=== PATIENT | male | born 1980 | race African-American/Black ===

== ENCOUNTER 2017-07-20 12:59 | Emergency (ER) | payer SELFPAY ==
[2017-07-20] MEDS ORDERED: KETOROLAC 30 MG/ML INJ ONE (13:47)
[2017-07-20 14:20] LABS: Absolute Lymphocytes (CBC) 1.4 K/uL (0.7-4.9); Absolute Monocytes 0.4 K/uL (0.1-1.3); Absolute Neutrophil 3.8 K/uL (1.8-8.0); Basophils % 0.9 % (0-1.3); Eosinophils % 1.2 % (0-4.4); Lymphocytes % 24.1 % (15.3-44.8); MCH 32.2 pg (27.0-35.0); MCV 95.5 fL (80-100); MPV 9.3 fL (7.6-11.3); Monocytes % 6.6 % (3.3-12.3); RBC Red Blood Cell Count 4.09 M/uL (4.33-5.43)
[2017-07-20 14:37] LABS: Potassium 4.2 mEq/L (3.6-5.0)
--- NOTE | 2017-07-20 15:33 | RAD REPORT ---
EXAM DESCRIPTION: CT - Abdomen Pelvis W Contrast - 07/20/2017 3:25 pm CLINICAL HISTORY: Abdominal pain, rectal pain COMPARISON: None. TECHNIQUE: Biphasic, helical CT imaging of the abdomen and pelvis was performed following 100 ml non -ionic IV contrast. Oral contrast was given. All CT scans are performed using dose optimization technique as appropriate and may include automated exposure control or mA/KV adjustment according to patient size. FINDINGS: No suspicious findings in the lung bases. The liver, spleen, and pancreas show no suspicious findings. Gallbladder and biliary tree are also wi thout suspicious finding. Symmetric renal function is seen with no hydronephrosis or suspicious renal mass. No pyelonephritis o r acute renal parenchymal process. Urinary bladder is contracted limiting detail. Prostate gland and seminal vesicles are not outside of normal range. No gastric dilatation or gastric wall thickening. No dilated large or small bowel loops. No rectal wa ll thickening or edema. No CT finding to explain the rectal pain symptoms. CT is very limited in rega rds to hemorrhoid diagnosis. No free air, free fluid or inflammatory stranding. No mass or bulky lymphadenopathy. Patient has a very small umbilical hernia containing only fat. No inguinal hernia. No adrenal abnormality. No suspicious bony findings. IMPRESSION: No rectal wall thickening or edema. No acute rectal or pelvic floor abnormality to expla in rectal pain symptoms. CT imaging is very limited in terms of hemorrhoid diagnosis. The
--- NOTE | 2017-07-20 16:51 | EDPHYS ---
Physician Documentation [facility] Name: Brett Santo Age: 37 yrs Sex: Male : 1980 Arrival Date: 07/20/2017 Time: 13:02 Bed 13 Private MD: ED Physician Kishore Pandey HPI: 07/20 19:06 This 37 yrs old Black Male presents to ER via Ambulatory with complaints of Abdominal kdr Pain, Diarrhea. 19:07 The patient presents to the emergency department with pain in the rectal area, that is kdr moderate. Onset: The symptoms/episode began/occurred gradually, 2 day(s) ago. Context: the patient has no known special context relating to the rectal area complaint(s). Modifying factors: The symptoms are alleviated by nothing, The symptoms are aggravated by bowel movement, movement. Associate signs and symptoms: Pertinent positives: diarrhea, vomiting, stomach contents, Pertinent negatives: constipation, dysuria, fever, lower GI bleeding. The patient has not experienced similar symptoms in the past. The patient has not recently seen a physician. Hurts worse when standing. Historical: - Allergies: 13:10 EGG/POULTRY; ch 13:10 PENICILLINS; ch - Home Meds: 13:10 None [Active]; ch - PMHx: 13:10 Asthma; ch - PSHx: 13:10 R arm; ch - Immunization history:: Adult Immunizations up to date, Flu vaccine is up to date. - Social history:: Smoking status: Patient uses tobacco products, denies chronic smoking, but will smoke occasionally, Patient uses alcohol, weekly. Patient/guardian denies using. ROS: 19:07 Constitutional: Negative for fever, chills, and weight loss, Eyes: Negative for injury, kdr pain, redness, and discharge, ENT: Negative for injury, pain, and discharge, Neck: Negative for injury, pain, and swelling, Cardiovascular: Negative for chest pain, palpitations, and edema, Respiratory: Negative for shortness of breath, cough, wheezing, and pleuritic chest pain, Back: Negative for injury and pain, : Negative for injury, bleeding, discharge, and swelling, MS/Extremity: Negative for injury and deformity, Skin: Negative for injury, rash, and discoloration, Neuro: Negative for headache, weakness, numbness, tingling, and seizure activity. Psych: Negative for depression, anxiety, suicide ideation, homicidal ideation, and hallucinations, Allergy/Immunology: Negative for hives, rash, and allergies, Endocrine: Negative for neck swelling, polydipsia, polyuria, polyphagia, and marked weight changes, Hematologic/Lymphatic: Negative for swollen nodes, abnormal bleeding, and unusual bruising. 19:07 Abdomen/GI: Positive for nausea, vomiting, diarrhea, rectal pain, Negative for abdominal pain, constipation, abdominal distension, anorexia, dysphagia, hematemesis, rectal bleeding, bowel incontinence. Exam: 19:07 Constitutional: This is a well developed, well nourished patient who is awake, alert, kdr and in no acute distress. Head/Face: Normocephalic, atraumatic. Eyes: Pupils equal round and reactive to light, extra-ocular motions intact. Lids and lashes normal. Conjunctiva and sclera are non-icteric and not injected. Cornea within normal limits. Periorbital areas with no swelling, redness, or edema. Neck: Trachea midline, no thyromegaly or masses palpated, and no cervical lymphadenopathy. Supple, full range of motion without nuchal rigidity, or vertebral point tenderness. No Meningismus. 19:07 Abdomen/GI: Inspection: Rectal exam: hemorrhoid(s), are not appreciated, external, mass, is not appreciated, swelling, is not appreciated, tenderness, that is mild. Vital Signs: 13:10 BP 138 / 86; Pulse 83; Resp 18; Temp 98.3; Pulse Ox 99% on R/A; Weight 81.65 kg; Height ch 6 ft. (182.88 cm); Pain 8/10; 14:31 BP 131 / 87; Pulse 80; Resp 16; Pulse Ox 100% ; hb 14:42 BP 131 / 87; Pulse 52; Resp 16; Pulse Ox 100% on R/A; hb 15:45 BP 162 / 81; Pulse 58; Resp 15; Pulse Ox 98% on R/A; Pain 3/10; hb 13:10 Body Mass Index 24.41 (81.65 kg, 182.88 cm) ch MDM: 16:50 Patient medically screened. kdr 19:07 Data reviewed: vital signs, nurses notes, lab test result(s), radiologic studies. kdr Counseling: I had a detailed discussion with the patient and/or guardian regarding: the historical points, exam findings, and any diagnostic results supporting the discharge/admit diagnosis, lab results, radiology results, the need for outpatient follow up. 07/20 13:43 Order name: CBC with Diff; Complete Time: 16:48 kdr 07/20 13:43 Order name: Chem 7; Complete Time: 16:48 kdr 07/20 13:43 Order name: CT Abd/Pelvis - W/Contrast; Complete Time: 16:48 kdr Administered Medications: 13:50 Drug: TORadol 30 mg Route: IVP; Site: right antecubital; hb 14:30 Follow up: Response: No adverse reaction; Pain is decreased hb Disposition: 07/20/17 16:50 Discharged to Home. Impression: Rectal pain. - Condition is Stable. - Prescriptions for Tramadol 50 mg Oral Tablet - take 1 tablet by ORAL route every 8 hours as needed; 12 tablet. Anusol- HC 25 mg Rectal Suppository - insert 1 suppository by RECTAL route every 12 hours As needed; 20 suppository. - Medication Reconciliation Form, Thank You Letter, Antibiotic Education, Prescription Opioid Use form. - Work release form (07/21/17 10:49). bd - Follow up: Private Physician; When: 2 - 3 days; Reason: If symptoms return, Further diagnostic work-up, Recheck today's complaints, Continuance of care, Re-evaluation by your physician. - Problem is new. - Symptoms have improved. Signatures: Dispatcher [employer] EDMS Dianne Hernandez RN RN Kishore Pandey MD MD [facility] Danay Jacinto RN RN aa5 Lorri Le RN RN Julia Joshi Corrections: (The following items were deleted from the chart) 17:25 16:50 07/20/2017 16:50 Discharged to Home. Impression: Rectal pain. Condition is aa5 Stable. Forms are Medication Reconciliation Form, Thank You Letter, Antibiotic Education, Prescription Opioid Use. Follow up: Private Physician; When: 2 - 3 days; Reason: If symptoms return, Further diagnostic work-up, Recheck today's complaints, Continuance of care, Re-evaluation by your physician. Problem is new. Symptoms have improved. kdr
--- NOTE | 2017-07-20 16:51 | ER ---
Nurse's Notes [facility] Name: Brett Santo Age: 37 yrs Sex: Male : 1980 Arrival Date: 07/20/2017 Time: 13:02 Bed 13 Private MD: Diagnosis: Rectal pain Presentation: 07/20 13:09 Presenting complaint: Patient states: My rectum hurts a lot, I don't know if I have a ch Hemorrhoid or what. Diarrhea for 2 days. Transition of care: patient was not received from another setting of care. Onset of symptoms was July 18, 2017. Initial Sepsis Screen: Does the patient meet any 2 criteria? No. Patient's initial sepsis screen is negative. Does the patient have a suspected source of infection? No. Patient's initial sepsis screen is negative. Care prior to arrival: None. 13:09 Method Of Arrival: Ambulatory 13:09 Acuity: SERGIO 4 ch Triage Assessment: 13:10 General: Appears in no apparent distress. comfortable, Behavior is calm, cooperative, ch appropriate for age. Pain: Complains of pain in anus Pain currently is 8 out of 10 on a pain scale. GI: Reports diarrhea, rectal pain. Historical: - Allergies: 13:10 EGG/POULTRY; 13:10 PENICILLINS; - Home Meds: 13:10 None [Active]; - PMHx: 13:10 Asthma; - PSHx: 13:10 R arm; - Immunization history:: Adult Immunizations up to date, Flu vaccine is up to date. - Social history:: Smoking status: Patient uses tobacco products, denies chronic smoking, but will smoke occasionally, Patient uses alcohol, weekly. Patient/guardian denies using. Screenin:45 Abuse screen: Denies threats or abuse. Denies injuries from another. hb 13:45 Nutritional screening: No deficits noted. Tuberculosis screening: No symptoms or risk hb factors identified. Fall Risk None identified. Assessment: 13:50 General: Appears in no apparent distress. Behavior is calm, cooperative. Pain: Pain hb currently is 5 out of 10 on a pain scale. Neuro: Level of Consciousness is awake, alert, obeys commands, Oriented to person, place, time, situation. Cardiovascular: Heart tones S1 S2 present Capillary refill < 3 seconds Patient's skin is warm and dry. Respiratory: Airway is patent Trachea midline Respiratory effort is even, unlabored, Respiratory pattern is regular, symmetrical, Breath sounds are clear bilaterally. GI: Abdomen is non-distended, Bowel sounds present X 4 quads. Abd is soft and non tender X 4 quads. Reports hemorrhoids. : No signs and/or symptoms were reported regarding the genitourinary system. EENT: No signs and/or symptoms were reported regarding the EENT system. Derm: No signs and/or symptoms reported regarding the dermatologic system. Skin is intact, is healthy with good turgor, Skin is pink, warm \T\ dry. Musculoskeletal: No signs and/or symptoms reported regarding the musculoskeletal system. 14:43 Reassessment: Patient appears in no apparent distress at this time. Patient and/or hb family updated on plan of care and expected duration. Pain level reassessed. Patient is alert, oriented x 3, equal unlabored respirations, skin warm/dry/pink. 15:40 Reassessment: Patient appears in no apparent distress at this time. Patient and/or hb family updated on plan of care and expected duration. Pain level reassessed. Patient is alert, oriented x 3, equal unlabored respirations, skin warm/dry/pink. Patient states symptoms have improved. Vital Signs: 13:10 BP 138 / 86; Pulse 83; Resp 18; Temp 98.3; Pulse Ox 99% on R/A; Weight 81.65 kg; Height ch 6 ft. (182.88 cm); Pain 8/10; 14:31 BP 131 / 87; Pulse 80; Resp 16; Pulse Ox 100% ; hb 14:42 BP 131 / 87; Pulse 52; Resp 16; Pulse Ox 100% on R/A; hb 15:45 BP 162 / 81; Pulse 58; Resp 15; Pulse Ox 98% on R/A; Pain 3/10; hb 13:10 Body Mass Index 24.41 (81.65 kg, 182.88 cm) ED Course: 13:02 Patient arrived in ED. sb2 13:05 Kishore Pandey MD is Attending Physician. kdr 13:10 Triage completed. ch 13:10 Arm band placed on left wrist. Patient placed in an exam room, on a stretcher. ch 13:32 Lorri Le RN is Primary Nurse. hb 13:45 Patient has correct armband on for positive identification. Placed in gown. Bed in low hb position. Call light in reach. Side rails up X 1. 13:50 Inserted saline lock: 20 gauge in right antecubital area, using aseptic technique. hb Blood collected. 15:25 CT Abd/Pelvis - W/Contrast In Process Unspecified. EDMS Administered Medications: 13:50 Drug: TORadol 30 mg Route: IVP; Site: right antecubital; hb 14:30 Follow up: Response: No adverse reaction; Pain is decreased hb Outcome: 16:50 Discharge ordered by . pablo 17:25 Patient left the ED. aa5 Signatures: Dispatcher [employer] EDMS Dianne Hernandez, RN RN Kishore Pandey MD MD kdr Calderon, Audri, RN RN aa5 Lorri Le RN RN Anum Clancy sb2
== END 2017-07-20 17:25 | disposition home or self-care (01) ==
LOC: ER 12:59
DX: K62.89 Other specified diseases of anus and rectum (principal); Z72.0 Tobacco use; Z88.0 Allergy status to penicillin; Z91.012 Allergy to eggs; Z91.018 Allergy to other foods
CPT/HCPCS: 36415; 74177; 80048; 85025; 96374; 99284; Q9967

== ENCOUNTER 2018-01-19 04:47 | Emergency (ER) | payer SELFPAY ==
[2018-01-19] MEDS ORDERED: ALBUTEROL 2.5 MG/3 ML NEB SOL ONE (05:47)
[2018-01-19] MEDS ORDERED: DIPHENHYDRAMINE 25 MG TAB/CAP ONE (05:47)
[2018-01-19] MEDS ORDERED: IPRATROPIUM BROM 0.5MG/2.5ML ONE (05:47)
[2018-01-19] MEDS ORDERED: IBUPROFEN 200 MG TAB PO ONE (05:48)
[2018-01-19] MEDS ORDERED: IBUPROFEN 400 MG TAB ONE (05:48)
[2018-01-19] MEDS ORDERED: ACETAMINOPHEN 500 MG TAB ONE (06:04)
--- NOTE | 2018-01-19 07:31 | ER ---
Nurse's Notes [facility] Name: Brett Santo Age: 37 yrs Sex: Male : 1980 Arrival Date: 01/19/2018 Time: 04:56 Bed 14 Private MD: Diagnosis: Acute Viral syndrome Presentation: 01/19 05:06 Presenting complaint: Patient states: Pt reports congestion, chills, body aches, cough, ea sore throat since Tuesday, reports was diagnosed with flu last week. Transition of care: patient was not received from another setting of care. Onset of symptoms was January 19, 2018. Risk Assessment: Do you want to hurt yourself or someone else? Patient reports no desire to harm self or others. Initial Sepsis Screen: Does the patient meet any 2 criteria? No. Patient's initial sepsis screen is negative. Does the patient have a suspected source of infection? Yes: Productive cough/pneumonia. Care prior to arrival: None. 05:06 Method Of Arrival: Ambulatory ea 05:06 Acuity: SERGIO 4 ea Triage Assessment: 05:09 General: Appears uncomfortable, Behavior is calm, cooperative, appropriate for age. ea Pain: Complains of pain in body aches Pain currently is 8 out of 10 on a pain scale. EENT: Parent/caregiver reports the patient having nasal congestion. Neuro: Level of Consciousness is awake, alert, obeys commands, Oriented to person, place, time, situation. Cardiovascular: Patient's skin is warm and dry. Respiratory: Airway is patent Respiratory effort is even, unlabored, Respiratory pattern is regular, symmetrical, Parent/caregiver reports the patient having cough that is productive. GI: No signs and/or symptoms were reported involving the gastrointestinal system. : No signs and/or symptoms were reported regarding the genitourinary system. Derm: Skin is pink, warm \T\ dry. Musculoskeletal: Circulation, motion, and sensation intact. Historical: - Allergies: 05:08 PENICILLINS; ea 05:08 EGG/POULTRY; ea - Home Meds: 05:08 None [Active]; ea - PMHx: 05:08 Asthma; ea - PSHx: 05:08 R arm; ea - Immunization history:: Adult Immunizations up to date. - Social history:: Smoking status: Patient uses tobacco products, smokes one pack cigarettes per day. - Ebola Screening: : No symptoms or risks identified at this time. - Family history:: not pertinent. - Hospitalizations: : No recent hospitalization is reported. Screenin:12 Abuse screen: Denies threats or abuse. Nutritional screening: No deficits noted. ea Tuberculosis screening: No symptoms or risk factors identified. Fall Risk None identified. Assessment: 05:09 Reassessment: see triage assessment. ea 06:14 Reassessment: Patient and/or family updated on plan of care and expected duration. Pain ea level reassessed. Patient is alert, oriented x 3, equal unlabored respirations, skin warm/dry/pink. Awaiting on flu swab results. 07:09 General: Appears in no apparent distress. uncomfortable, Behavior is calm, cooperative, hj appropriate for age. Pain: Complains of pain in body. Neuro: Level of Consciousness is awake, alert, obeys commands, Oriented to person, place, time, situation, Appropriate for age. Cardiovascular: Capillary refill < 3 seconds Patient's skin is warm and dry. Respiratory: Airway is patent Respiratory effort is even, unlabored, Respiratory pattern is regular, symmetrical. GI: No signs and/or symptoms were reported involving the gastrointestinal system. : No signs and/or symptoms were reported regarding the genitourinary system. EENT: No signs and/or symptoms were reported regarding the EENT system. Derm: No signs and/or symptoms reported regarding the dermatologic system. Musculoskeletal: No signs and/or symptoms reported regarding the musculoskeletal system. Vital Signs: 05:11 BP 157 / 113; Pulse 66; Resp 18; Temp 98.6(TE); Pulse Ox 100% on R/A; Weight 79.38 kg; ea Height 6 ft. 1 in. (185.42 cm); Pain 8/10; 06:15 BP 139 / 91; Pulse 55; Resp 18; Pulse Ox 98% ; ea 07:10 BP 138 / 89; Pulse 62; Resp 18; Pulse Ox 100% on R/A; hj 05:11 Body Mass Index 23.09 (79.38 kg, 185.42 cm) ea ED Course: 04:56 Patient arrived in ED. es 05:02 Arm band placed on right wrist. Patient placed in an exam room, on a stretcher, on ea pulse oximetry. 05:06 Tanya Marie RN is Primary Nurse. ea 05:06 Feng Sanchez MD is Attending Physician. wa 05:08 Triage completed. ea 05:12 Patient has correct armband on for positive identification. Bed in low position. Call ea light in reach. Side rails up X2. 07:05 Report given to Parmjit SKINNER. ea 07:39 No provider procedures requiring assistance completed. Patient did not have IV access hj during this emergency room visit. Administered Medications: 05:51 Drug: Benadryl 25 mg Route: PO; lp1 06:17 Follow up: Response: No adverse reaction ea 05:51 Drug: Motrin 600 mg Route: PO; lp1 06:17 Follow up: Response: No adverse reaction ea 05:51 Drug: Albuterol 2.5 mg Route: Inhalation; lp1 06:17 Follow up: Response: No adverse reaction ea 05:51 Drug: AtroVENT Aerosol 0.5 mg Route: Inhalation; lp1 06:17 Follow up: Response: No adverse reaction ea 06:00 Drug: Tylenol 1000 mg Route: PO; ea 06:17 Follow up: Response: No adverse reaction ea Outcome: 07:30 Discharge ordered by . wa 07:41 Discharged to home ambulatory, with family. hj 07:41 Condition: stable 07:41 Discharge instructions given to patient, family, Instructed on discharge instructions, follow up and referral plans. medication usage, Demonstrated understanding of instructions, follow-up care, medications, Prescriptions given X 1. 07:41 Patient left the ED. hj Signatures: Leeanne Mullen Laura, RN RN lp1 Parmjit Ovalles RN RN Tanya Marie RN RN ea Appiah, William, MD MD oh
--- NOTE | 2018-01-19 07:31 | EDPHYS ---
Physician Documentation [facility] Name: Brett Santo Age: 37 yrs Sex: Male : 1980 Arrival Date: 01/19/2018 Time: 04:56 Bed 14 Private MD: ED Physician Feng Sanchez HPI: 01/19 05:39 This 37 yrs old Black Male presents to ER via Ambulatory with complaints of Flu wa Symptoms. 05:39 The patient or guardian reports cough, that is intermittent, described as moderate, wa difficulty breathing, flu symptoms, low-grade fever, myalgias, sore throat. body aches. Onset: The symptoms/episode began/occurred 4 day(s) ago. Severity of symptoms: At their worst the symptoms were moderate, in the emergency department the symptoms are actually worse. Modifying factors: The symptoms are alleviated by nothing, the symptoms are aggravated by nothing. Associated signs and symptoms: Pertinent positives: fever, rhinorrhea, sore throat, Pertinent negatives: chest pain, diarrhea, vomiting. The patient has not experienced similar symptoms in the past. The patient has not recently seen a physician. spouse dx'd with flu. Historical: - Allergies: 05:08 PENICILLINS; ea 05:08 EGG/POULTRY; ea - Home Meds: 05:08 None [Active]; ea - PMHx: 05:08 Asthma; ea - PSHx: 05:08 R arm; ea - Immunization history:: Adult Immunizations up to date. - Social history:: Smoking status: Patient uses tobacco products, smokes one pack cigarettes per day. - Ebola Screening: : No symptoms or risks identified at this time. - Family history:: not pertinent. - Hospitalizations: : No recent hospitalization is reported. ROS: 05:41 Eyes: Negative for injury, pain, redness, and discharge, Neck: Negative for injury, wa pain, and swelling, Cardiovascular: Negative for chest pain, palpitations, and edema, Abdomen/GI: Negative for abdominal pain, nausea, vomiting, diarrhea, and constipation, Back: Negative for injury and pain, : Negative for injury, bleeding, discharge, and swelling, MS/Extremity: Negative for injury and deformity, Skin: Negative for injury, rash, and discoloration, Neuro: Negative for headache, weakness, numbness, tingling, and seizure, Psych: Negative for depression, anxiety, suicide ideation, homicidal ideation, and hallucinations. 05:41 Constitutional: Positive for body aches, chills, fatigue, malaise, Negative for weight loss. 05:41 ENT: Positive for sinus congestion, sore throat, Negative for ear pain. 05:41 Respiratory: Positive for cough, with no reported sputum, shortness of breath, at rest. wheezing, expiratory, Negative for hemoptysis. Exam: 05:42 Constitutional: This is a well developed, well nourished patient who is awake, alert, wa and in no acute distress. Head/Face: Normocephalic, atraumatic. Eyes: Pupils equal round and reactive to light, extra-ocular motions intact. Lids and lashes normal. Conjunctiva and sclera are non-icteric and not injected. Cornea within normal limits. Periorbital areas with no swelling, redness, or edema. Neck: Trachea midline, no thyromegaly or masses palpated, and no cervical lymphadenopathy. Supple, full range of motion without nuchal rigidity, or vertebral point tenderness. No Meningismus. Cardiovascular: Regular rate and rhythm with a normal S1 and S2. No gallops, murmurs, or rubs. Normal PMI, no JVD. No pulse deficits. Respiratory: Lungs have equal breath sounds bilaterally, clear to auscultation and percussion. No rales, rhonchi or wheezes noted. No increased work of breathing, no retractions or nasal flaring. Abdomen/GI: Soft, non-tender, with normal bowel sounds. No distension or tympany. No guarding or rebound. No evidence of tenderness throughout. Back: No spinal tenderness. No costovertebral tenderness. Full range of motion. Skin: Warm, dry with normal turgor. Normal color with no rashes, no lesions, and no evidence of cellulitis. MS/ Extremity: Pulses equal, no cyanosis. Neurovascular intact. Full, normal range of motion. Neuro: Awake and alert, GCS 15, oriented to person, place, time, and situation. Cranial nerves II-XII grossly intact. Motor strength 5/5 in all extremities. Sensory grossly intact. Cerebellar exam normal. Normal gait. Psych: Awake, alert, with orientation to person, place and time. Behavior, mood, and affect are within normal limits. 05:42 Respiratory: the patient does not display signs of respiratory distress, Respirations: normal, Breath sounds: wheezing: that is mild, is scattered, is heard diffusely. Vital Signs: 05:11 BP 157 / 113; Pulse 66; Resp 18; Temp 98.6(TE); Pulse Ox 100% on R/A; Weight 79.38 kg; ea Height 6 ft. 1 in. (185.42 cm); Pain 8/10; 06:15 BP 139 / 91; Pulse 55; Resp 18; Pulse Ox 98% ; ea 07:10 BP 138 / 89; Pulse 62; Resp 18; Pulse Ox 100% on R/A; hj 05:11 Body Mass Index 23.09 (79.38 kg, 185.42 cm) ea MDM: 05:06 Patient medically screened. de 05:42 Differential Diagnosis: Bronchitis Influenza Upper Respiratory Infection Asthma de Exacerbation Viral Syndrome. 07:27 Data reviewed: vital signs, nurses notes. Test interpretation: by ED physician or wa midlevel provider: Flu negative. Response to treatment: the patient's symptoms have markedly improved after treatment. 01/19 05:30 Order name: Flu; Complete Time: 07:27 de Administered Medications: 05:51 Drug: Benadryl 25 mg Route: PO; lp1 06:17 Follow up: Response: No adverse reaction ea 05:51 Drug: Motrin 600 mg Route: PO; lp1 06:17 Follow up: Response: No adverse reaction ea 05:51 Drug: Albuterol 2.5 mg Route: Inhalation; lp1 06:17 Follow up: Response: No adverse reaction ea 05:51 Drug: AtroVENT Aerosol 0.5 mg Route: Inhalation; lp1 06:17 Follow up: Response: No adverse reaction ea 06:00 Drug: Tylenol 1000 mg Route: PO; ea 06:17 Follow up: Response: No adverse reaction ea Disposition: 01/19/18 07:30 Discharged to Home. Impression: Acute Viral syndrome. - Condition is Stable. - Discharge Instructions: Viral Respiratory Infection, [id number]. - Prescriptions for Albuterol Sulfate 90 mcg/actuation - inhale 1-2 puff by INHALATION route every 4-6 hours; 1 Inhaler. - Work release form, Medication Reconciliation Form, Thank You Letter, Antibiotic Education, Prescription Opioid Use form. - Follow up: Private Physician; When: 1 - 2 days. - Problem is new. - Symptoms have improved. Signatures: Dispatcher [employer] EDMS Letty Lin RN RN lp1 Parmjit Ovalles RN SUSANNE hj Tanya Marie RN Feng Montgomery ea, MD MD wa Corrections: (The following items were deleted from the chart) 07:41 07:30 01/19/2018 07:30 Discharged to Home. Impression: Acute Viral syndrome. Condition hj is Stable. Forms are Medication Reconciliation Form, Thank You Letter, Antibiotic Education, Prescription Opioid Use. Follow up: Private Physician; When: 1 - 2 days. Problem is new. Symptoms have improved. wa
== END 2018-01-19 07:41 | disposition home or self-care (01) ==
LOC: ER 04:47
DX: B34.9 Viral infection, unspecified (principal); F17.210 Nicotine dependence, cigarettes, uncomplicated; Z88.0 Allergy status to penicillin; Z91.012 Allergy to eggs; Z91.018 Allergy to other foods
CPT/HCPCS: 87804; 99284

== ENCOUNTER 2018-02-23 00:41 | Emergency (ER) | payer SELFPAY ==
[2018-02-23 02:06] LABS: Absolute Lymphocytes (CBC) 1.4 K/uL (0.7-4.9); Absolute Monocytes 0.5 K/uL (0.1-1.3); Absolute Neutrophil 7.2 K/uL (1.8-8.0); Basophils % 0.4 % (0-1.3); Eosinophils % 1.5 % (0-4.4); Hematocrit 39.8 % (39.6-49.0); Lymphocytes % 14.5 % (15.3-44.8); MCV 94.8 fL (80-100); Monocytes % 5.7 % (3.3-12.3); RBC Red Blood Cell Count 4.19 M/uL (4.33-5.43)
[2018-02-23 02:25] LABS: BUN Blood Urea Nitrogen 17 mg/dL (7-18); Bicarbonate 27 mmol/L (21-32); Glucose Level 82 mg/dL (74-106); Potassium 3.7 mmol/L (3.5-5.1); Sodium Level 142 mmol/L (136-145); Troponin I < 0.02 ng/mL (0.0-0.045)
--- NOTE | 2018-02-23 02:46 | ER ---
Nurse's Notes [facility] Name: Brett Santo Jr Age: 37 yrs Sex: Male : 1980 Arrival Date: 02/23/2018 Time: 00:42 Bed 8 Private MD: Diagnosis: Acute upper respiratory infection, unspecified Presentation: 02/23 00:56 Presenting complaint: Patient states: "I went to bed with bad sinus pressure. I woke up jd3 with bad chest pressure and coughing. it hurts to cough and hurts to swallow.". Transition of care: patient was not received from another setting of care. Onset of symptoms was February 22, 2018. Risk Assessment: Do you want to hurt yourself or someone else? Patient reports no desire to harm self or others. Initial Sepsis Screen: Does the patient meet any 2 criteria? No. Patient's initial sepsis screen is negative. Does the patient have a suspected source of infection? No. Patient's initial sepsis screen is negative. Care prior to arrival: None. 00:56 Method Of Arrival: Ambulatory jd3 00:56 Acuity: SERGIO 3 jd3 Historical: - Allergies: 01:00 PENICILLINS; jd3 01:00 EGG/POULTRY; jd3 - Home Meds: 01:00 None [Active]; jd3 - PMHx: 01:00 Asthma; jd3 - PSHx: 01:00 R arm; jd3 - Immunization history:: Adult Immunizations up to date, Flu vaccine is not up to date. - Social history:: Smoking status: Patient uses tobacco products, smokes one-half pack cigarettes per day. - Ebola Screening: : Patient negative for fever greater than or equal to 101.5 degrees Fahrenheit, and additional compatible Ebola Virus Disease symptoms. Screenin:04 Abuse screen: Denies threats or abuse. Nutritional screening: No deficits noted. jd3 Tuberculosis screening: No symptoms or risk factors identified. Fall Risk Ambulatory Aid- None/Bed Rest/Nurse Assist (0 pts). Gait- Normal/Bed Rest/Wheelchair (0 pts) Mental Status- Oriented to own ability (0 pts). Total Song Fall Scale indicates No Risk (0-24 pts). Assessment: 01:01 General: Appears in no apparent distress. uncomfortable, Behavior is calm, cooperative, jd3 appropriate for age. Pain: Complains of pain in chest Quality of pain is described as pressure. Neuro: Level of Consciousness is awake, alert, obeys commands, Oriented to person, place, time, situation. Cardiovascular: Heart tones S1 S2 present Capillary refill < 3 seconds Patient's skin is warm and dry. Respiratory: Reports cough that is Airway is patent Respiratory effort is even, unlabored, Respiratory pattern is regular, symmetrical, Breath sounds are clear bilaterally. GI: Abdomen is round non-distended. : No signs and/or symptoms were reported regarding the genitourinary system. EENT: No signs and/or symptoms were reported regarding the EENT system. Derm: Skin is intact. Musculoskeletal: Circulation, motion, and sensation intact. Range of motion: intact in all extremities. 02:23 Reassessment: Patient appears in no apparent distress at this time. Patient and/or jd3 family updated on plan of care and expected duration. Pain level reassessed. Patient is alert, oriented x 3, equal unlabored respirations, skin warm/dry/pink. 03:01 Reassessment: Patient appears in no apparent distress at this time. Patient and/or jd3 family updated on plan of care and expected duration. Pain level reassessed. Patient is alert, oriented x 3, equal unlabored respirations, skin warm/dry/pink. Vital Signs: 01:00 BP 137 / 100; Pulse 69; Resp 19 S; Temp 97.7(O); Pulse Ox 100% on R/A; Weight 79.38 kg jd3 (R); Height 6 ft. 1 in. (185.42 cm) (R); Pain 8/10; 02:23 BP 140 / 78; Pulse 57; Resp 18 S; Pulse Ox 100% on R/A; jd3 01:00 Body Mass Index 23.09 (79.38 kg, 185.42 cm) d3 ED Course: 00:42 Patient arrived in ED. am2 00:56 Michael Schwarz RN is Primary Nurse. jd3 00:58 Quinten Islas NP is PHCP. pm1 00:58 Lance Alfonso MD is Attending Physician. pm1 00:59 Triage completed. jd3 01:01 Arm band placed on. jd3 01:04 Patient has correct armband on for positive identification. Bed in low position. Call j light in reach. Side rails up X 1. Adult w/ patient. 01:21 Patient moved to radiology via wheelchair. kw 01:21 X-ray completed. Patient tolerated procedure well. kw 01:21 Patient moved back from radiology. kw 01:23 Chest Pa And Lat (2 Views) In Process Unspecified. EDMS 01:29 Warm blanket given. jd3 01:52 Inserted saline lock: 20 gauge in right antecubital area, using aseptic technique. ds4 Blood collected. 01:52 EKG done, by ED staff, reviewed by Lance Alfonso MD. ds4 03:00 No provider procedures requiring assistance completed. IV discontinued, intact, jd3 bleeding controlled, No redness/swelling at site. Pressure dressing applied. Administered Medications: 02:59 Drug: Tussionex Pennkinetic ER 5 ml Route: PO; jd3 02:59 Follow up: Response: Medication administered at discharge. jd3 Outcome: 02:45 Discharge ordered by MD. pm1 03:00 Discharged to home ambulatory, with family. jd3 03:00 Condition: stable 03:00 Discharge instructions given to patient, family, Instructed on discharge instructions, follow up and referral plans. medication usage, Demonstrated understanding of instructions, follow-up care, medications, Prescriptions given X 1. 03:01 Patient left the ED. jd3 Signatures: Dispatcher [employer] EDMS Julieta Hoyos Donovan ds4 Quinten Islas NP [employer] WORK[employer] pm1 Adri Mills am2 Michael Schwarz RN RN jd3
--- NOTE | 2018-02-23 02:46 | EDPHYS ---
Physician Documentation [facility] Name: Brett Santo Jr Age: 37 yrs Sex: Male : 1980 Arrival Date: 02/23/2018 Time: 00:42 Bed 8 Private MD: ED Physician Lance Alfonso HPI: 02/23 01:30 This 37 yrs old Black Male presents to ER via Ambulatory with complaints of Chest Pain. pm1 01:30 The patient or guardian reports cough, with productive sputum, that is yellow. pm1 01:30 Onset: The symptoms/episode began/occurred 1 week(s) ago. Severity of symptoms: in the pm1 emergency department the symptoms are actually worse. Modifying factors: The symptoms are alleviated by nothing, the symptoms are aggravated by nothing. Associated signs and symptoms: Pertinent positives: chest pain, with cough, with breathing, sore throat, Pertinent negatives: diarrhea, fever, vomiting. The patient has not experienced similar symptoms in the past. The patient has not recently seen a physician. Historical: - Allergies: 01:00 PENICILLINS; jd3 01:00 EGG/POULTRY; jd3 - Home Meds: 01:00 None [Active]; jd3 - PMHx: 01:00 Asthma; jd3 - PSHx: 01:00 R arm; jd3 - Immunization history:: Adult Immunizations up to date, Flu vaccine is not up to date. - Social history:: Smoking status: Patient uses tobacco products, smokes one-half pack cigarettes per day. - Ebola Screening: : Patient negative for fever greater than or equal to 101.5 degrees Fahrenheit, and additional compatible Ebola Virus Disease symptoms. ROS: 01:30 Constitutional: Negative for fever, chills, and weight loss, Eyes: Negative for injury, pm1 pain, redness, and discharge, Neck: Negative for injury, pain, and swelling. 01:30 Abdomen/GI: Negative for abdominal pain, nausea, vomiting, diarrhea, and constipation, Back: Negative for injury and pain, : Negative for injury, bleeding, discharge, and swelling, MS/Extremity: Negative for injury and deformity, Skin: Negative for injury, rash, and discoloration. 01:30 Neuro: Negative for headache, weakness, numbness, tingling, and seizure. 01:30 ENT: Positive for sinus congestion, sinus pain, sore throat. 01:30 Cardiovascular: Positive for chest pain, Negative for orthopnea, palpitations. 01:30 Respiratory: Positive for cough, Negative for shortness of breath, wheezing. Exam: 01:30 Constitutional: This is a well developed, well nourished patient who is awake, alert, pm1 and in no acute distress. Head/Face: Normocephalic, atraumatic. Eyes: Pupils equal round and reactive to light, extra-ocular motions intact. Lids and lashes normal. Conjunctiva and sclera are non-icteric and not injected. Cornea within normal limits. Periorbital areas with no swelling, redness, or edema. ENT: Nares patent. No nasal discharge, no septal abnormalities noted. Tympanic membranes are normal and external auditory canals are clear. Oropharynx with no redness, swelling, or masses, exudates, or evidence of obstruction, uvula midline. Mucous membranes moist. Neck: Trachea midline, no thyromegaly or masses palpated, and no cervical lymphadenopathy. Supple, full range of motion without nuchal rigidity, or vertebral point tenderness. No Meningismus. Chest/axilla: Normal chest wall appearance and motion. Nontender with no deformity. No lesions are appreciated. Cardiovascular: Regular rate and rhythm with a normal S1 and S2. No gallops, murmurs, or rubs. Normal PMI, no JVD. No pulse deficits. Respiratory: Lungs have equal breath sounds bilaterally, clear to auscultation and percussion. No rales, rhonchi or wheezes noted. No increased work of breathing, no retractions or nasal flaring. Abdomen/GI: Soft, non-tender, with normal bowel sounds. No distension or tympany. No guarding or rebound. No evidence of tenderness throughout. Back: No spinal tenderness. No costovertebral tenderness. Full range of motion. Skin: Warm, dry with normal turgor. Normal color with no rashes, no lesions, and no evidence of cellulitis. MS/ Extremity: Pulses equal, no cyanosis. Neurovascular intact. Full, normal range of motion. 01:30 Neuro: Orientation: is normal, Motor: is normal, Sensation: is normal, no obvious gross deficits. Vital Signs: 01:00 BP 137 / 100; Pulse 69; Resp 19 S; Temp 97.7(O); Pulse Ox 100% on R/A; Weight 79.38 kg jd3 (R); Height 6 ft. 1 in. (185.42 cm) (R); Pain 8/10; 02:23 BP 140 / 78; Pulse 57; Resp 18 S; Pulse Ox 100% on R/A; jd3 01:00 Body Mass Index 23.09 (79.38 kg, 185.42 cm) jd3 MDM: 00:58 Patient medically screened. pm1 02:42 Data reviewed: vital signs. Data interpreted: Pulse oximetry: on room air is 100 %. pm1 Interpretation: normal. 02:44 Counseling: I had a detailed discussion with the patient and/or guardian regarding: the pm1 historical points, exam findings, and any diagnostic results supporting the discharge/admit diagnosis, lab results, radiology results, the need for outpatient follow up, to return to the emergency department if symptoms worsen or persist or if there are any questions or concerns that arise at home. 02/23 02:03 Order name: Group A Streptococcus Rapid Sc; Complete Time: 02:26 EDMS 02/23 01:16 Order name: Chest Pa And Lat (2 Views); Complete Time: 19:19 EDMS 02/23 02:05 Order name: Influenza Screen (A ; Complete Time: 02:42 EDMS 02/23 02:06 Order name: Basic Metabolic Panel; Complete Time: 02:26 EDMS 02/23 02:06 Order name: Troponin I; Complete Time: 02:26 EDMS 02/23 02:06 Order name: CBC with Automated Diff; Complete Time: 02:26 EDMS 02/23 02:06 Order name: Throat Culture EDNM 02/23 01:04 Order name: EKG; Complete Time: 02:11 pm1 02/23 01:04 Order name: EKG - Nurse/Tech; Complete Time: 01:53 pm1 02/23 01:04 Order name: IV Saline Lock; Complete Time: 01:53 pm1 02/23 01:04 Order name: Labs collected and sent; Complete Time: 01:53 pm1 Administered Medications: 02:59 Drug: Tussionex Pennkinetic ER 5 ml Route: PO; jd3 02:59 Follow up: Response: Medication administered at discharge. jd3 Disposition: 06:05 Co-signature as Attending Physician, Lance Alfonso MD I agree with the assessment and tw4 plan of care. Disposition: 02/23/18 02:45 Discharged to Home. Impression: Acute upper respiratory infection, unspecified. - Condition is Stable. - Discharge Instructions: Upper Respiratory Infection, Adult. - Prescriptions for Guaifenesin AC 10- 100 mg/5 mL Oral Liquid - take 10 milliliter by ORAL route every 4 hours As needed; 240 milliliter. - Medication Reconciliation Form, Thank You Letter, Antibiotic Education, Prescription Opioid Use form. - Follow up: Emergency Department; When: As needed; Reason: Worsening of condition. Follow up: Private Physician; When: 2 - 3 days; Reason: Recheck today's complaints, Continuance of care, Re-evaluation by your physician. - Problem is new. - Symptoms have improved. Signatures: Dispatcher [employer] [facility] Quinten Islas, SUPERINTENDENT MENAGERIE SUPERINTENDENT MENAGERIE pm1 Michael Schwarz, RN RN jd3 Lance Alfonso MD MD tw4 Corrections: (The following items were deleted from the chart) 02:16 02:11 Chest Pa And Lat (2 Views)+RAD.RAD.BRZ ordered. [facility] 02 02:11 BASIC METABOLIC PANEL+C.LAB.BRZ ordered. [facility] 02: 02:11 CBC+H.LAB.BRZ ordered. [facility] 02:11 TROPONIN (EMERG DEPT USE ONLY)+C.LAB.BRZ ordered. [facility] : 02:11 Group A Streptococcus Rapid Sc+BA.LAB.BRZ ordered. [facility] 02:11 Influenza Screen (A \T\ B)+BA.LAB.BRZ ordered. [facility] 03:01 02:45 02/23/2018 02:45 Discharged to Home. Impression: Acute upper respiratory jd3 infection, unspecified. Condition is Stable. Forms are Medication Reconciliation Form, Thank You Letter, Antibiotic Education, Prescription Opioid Use. Follow up: Emergency Department; When: As needed; Reason: Worsening of condition. Follow up: Private Physician; When: 2 - 3 days; Reason: Recheck today's complaints, Continuance of care, Re-evaluation by your physician. Problem is new. Symptoms have improved. pm1
[2018-02-23] MEDS ORDERED: HYDROCODONE/CHLORPHEN 5 ML/OSYR ONE (03:03)
--- NOTE | 2018-02-23 05:10 | EKG ---
Test Date: 2018-02-23 Test Time: 01:49:30 Address Change Clerk: SAIMA MEASUREMENT RESULTS: Intervals: Rate: 60 W[place]: 192 QRSD: 82 QT: 382 QTc: 382 [place]: P: 69 W[place]: 192 QRS: 65 T: 47 INTERPRETIVE STATEMENTS: Normal sinus rhythm with sinus arrhythmia Cannot rule out Septal infarct, age undetermined Early repolarization Abnormal ECG Compared to ECG 12/26/2008 16:10:08 Possible Myocardial infarct finding now present Electronically Signed On 02-23-18 05:10:24 LOGISTICS MANAGEMENT SPECIALIST by Darshan Shankar
--- NOTE | 2018-02-23 08:46 | RAD REPORT ---
EXAM DESCRIPTION: RAD - Chest Pa And Lat (2 Views) - 02/23/2018 1:27 am CLINICAL HISTORY: COUGH, CHEST PAIN Chest pain. COMPARISON: CHEST SINGLE VIEW dated 02/10/2008; CHEST PA AND LAT 2 VIEW dated 03/21/2005 FINDINGS: The lungs are clear. The heart is normal in size. No displaced fractures. IMPRESSION: No acute or concerning finding suspected.
== END 2018-02-23 03:01 | disposition home or self-care (01) ==
LOC: ER 00:41
DX: J06.9 Acute upper respiratory infection, unspecified (principal); F17.210 Nicotine dependence, cigarettes, uncomplicated; Z88.0 Allergy status to penicillin; Z91.012 Allergy to eggs; Z91.018 Allergy to other foods
CPT/HCPCS: 36415; 71046; 80048; 84484; 85025; 87070; 87081; 87804; 93005; 99284

== ENCOUNTER 2019-03-12 07:28 | Emergency (ER) | payer SELFPAY ==
[2019-03-12] MEDS ORDERED: ONDANSETRON 4 MG (ODT) TAB ONE (07:53)
--- NOTE | 2019-03-12 08:32 | EDPHYS ---
Physician Documentation [facility] Name: Brett Santo Jr Age: 38 yrs Sex: Male : 1980 Arrival Date: 03/12/2019 Time: 07:31 Bed 13 Private MD: ED Physician Lonny Cartagena HPI: 03/12 07:45 This 38 yrs old Black Male presents to ER via EMS with complaints of Breathing ps1 Difficulty, Anxiety. 07:45 Patient has been sick for a week with URI. Patient states that he has taken cough ps1 medicine and was otherwise feeling better. He got up for work today and had several episodes of non-bloody emesis and then developed shortness of breath and anxiety when he got to work. Of note this was after using [employer]. 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 . Historical: - Allergies: 07:36 PENICILLINS; tw2 07:36 EGG/POULTRY; tw2 - PMHx: 07:36 Asthma; tw2 - PSHx: 07:36 R arm; tw2 - Immunization history:: Adult Immunizations. - Social history:: Smoking status: . - Ebola Screening: : Patient denies travel to an Ebola-affected area in the 21 days before illness onset. ROS: 07:45 Constitutional: Negative for fever, chills, and weight loss, Eyes: Negative for injury, ps1 pain, redness, and discharge, Cardiovascular: Negative for chest pain, palpitations, and edema, MS/Extremity: Negative for injury and deformity, Skin: Negative for injury, rash, and discoloration, Neuro: Negative for headache, weakness, numbness, tingling, and seizure. 07:45 Respiratory: Positive for cough, shortness of breath. 07:45 Abdomen/GI: Positive for nausea and vomiting. Exam: 07:45 Constitutional: This is a well developed, well nourished patient who is awake, alert, ps1 and in no acute distress. Head/Face: Normocephalic, atraumatic. Eyes: Pupils equal round and reactive to light, extra-ocular motions intact. Lids and lashes normal. Conjunctiva and sclera are non-icteric and not injected. ENT: Nares patent. No nasal discharge, no septal abnormalities noted. Tympanic membranes are normal and external auditory canals are clear. Oropharynx with no redness, swelling, or masses, exudates, or evidence of obstruction, uvula midline. Mucous membranes moist. Chest/axilla: Normal chest wall appearance and motion. Nontender with no deformity. No lesions are appreciated. Cardiovascular: Regular rate and rhythm. No gallops, murmurs, or rubs. Normal PMI, no JVD. No pulse deficits. Respiratory: Lungs have equal breath sounds bilaterally, clear to auscultation and percussion. No rales, rhonchi or wheezes noted. No increased work of breathing, no retractions or nasal flaring. Abdomen/GI: Soft, non-tender, with normal bowel sounds. No distension or tympany. No guarding or rebound. No evidence of tenderness throughout. MS/ Extremity: Pulses equal, no cyanosis. Neurovascular intact. Full, normal range of motion. Neuro: Awake and alert, GCS 15, oriented to person, place, time, and situation. Cranial nerves II-XII grossly intact. Sensory grossly intact. Psych: Awake, alert, with orientation to person, place and time. Behavior, mood, and affect are within normal limits. Vital Signs: 07:34 BP 138 / 99; Pulse 60; Resp 17; Temp 97.9(O); Pulse Ox 100% on R/A; Weight 79.38 kg tw2 (R); Height 6 ft. 1 in. (185.42 cm); Pain 0/10; 08:30 BP 136 / 89; Pulse 66; Resp 18; Temp 97.9; Pulse Ox 100% on R/A; Pain 0/10; sg 07:34 Body Mass Index 23.09 (79.38 kg, 185.42 cm) tw2 MDM: 07:50 Patient medically screened. ps1 08:30 Differential diagnosis: Anxiety Reaction Bronchitis reaction to THC. Data reviewed: ps1 vital signs, nurses notes, radiologic studies, and as a result, I will discharge patient. Counseling: I had a detailed discussion with the patient and/or guardian regarding: the historical points, exam findings, and any diagnostic results supporting the discharge/admit diagnosis, the presence of at least one elevated blood pressure reading (>120/80) during this emergency department visit, radiology results, the need for outpatient follow up, to return to the emergency department if symptoms worsen or persist or if there are any questions or concerns that arise at home. 03/12 07:48 Order name: CXR XRAY ps1 Administered Medications: 07:52 Drug: Zofran 4 mg Route: PO; sg Disposition: 03/12/19 08:31 Discharged to Home. Impression: Bronchospasm, Anxiety reaction, Nausea and vomiting. - Condition is Stable. - Discharge Instructions: Nausea and Vomiting, Adult, Generalized Anxiety Disorder. - Prescriptions for Zofran 4 mg Oral Tablet - take 1 tablet by ORAL route every 12 hours As needed; 20 tablet. Lisinopril 5 mg Oral Tablet - take 1 tablet by ORAL route once daily; 20 tablet. Albuterol Sulfate 90 mcg/actuation - inhale 1-2 puff by INHALATION route every 4-6 hours; 1 Inhaler. - Work release form, Medication Reconciliation Form, Thank You Letter, Antibiotic Education, Prescription Opioid Use form. - Follow up: Private Physician; When: 7 - 10 days; Reason: Further diagnostic work-up, Recheck today's complaints, Continuance of care, Re-evaluation by your physician. Follow up: Emergency Department; When: As needed; Reason: Fever > 102 F, Trouble breathing, Worsening of condition. - Problem is new. - Symptoms are resolved. Signatures: Dispatcher [employer] EDMS John Hines RN RN Lorri Le RN RN Mandy Marin RN RN tw2 Lonny Cartagena MD MD ps1 Corrections: (The following items were deleted from the chart) 08:43 08:31 03/12/2019 08:31 Discharged to Home. Impression: Bronchospasm; Anxiety reaction; hb Nausea and vomiting. Condition is Stable. Forms are Work release form, Medication Reconciliation Form, Thank You Letter, Antibiotic Education, Prescription Opioid Use. Follow up: Private Physician; When: 7 - 10 days; Reason: Further diagnostic work-up, Recheck today's complaints, Continuance of care, Re-evaluation by your physician. Follow up: Emergency Department; When: As needed; Reason: Fever > 102 F, Trouble breathing, Worsening of condition. Problem is new. Symptoms are resolved. ps1
--- NOTE | 2019-03-12 08:32 | ER ---
Nurse's Notes [facility] Name: Brett Santo Jr Age: 38 yrs Sex: Male : 1980 Arrival Date: 03/12/2019 Time: 07:31 Bed 13 Private MD: Diagnosis: Bronchospasm;Anxiety reaction;Nausea and vomiting Presentation: 03/12 07:28 Presenting complaint: EMS states: pt was at work, we got a call for difficulty tw2 breathing, when we arrived he was breathing fast, diaphoretic and nauseous, 99% on RA, he was also complaining of hands and cheek tingling, we got him to slow his breathing down, he took off some layers of his work clothes and his symptoms resolved. Hx: asthma, he said this morning he felt a little sob, he used his inhaler but it didn't do anything. Transition of care: patient was not received from another setting of care. Onset of symptoms was March 12, 2019. Risk Assessment: Do you want to hurt yourself or someone else? Patient reports no desire to harm self or others. Initial Sepsis Screen: Does the patient meet any 2 criteria? No. Patient's initial sepsis screen is negative. Does the patient have a suspected source of infection? No. Patient's initial sepsis screen is negative. Care prior to arrival: None. 07:28 Method Of Arrival: EMS: [facility] tw2 07:28 Acuity: SERGIO 3 tw2 Triage Assessment: 07:35 General: Appears in no apparent distress. slender, Behavior is calm, cooperative, tw2 appropriate for age. Pain: Denies pain. Respiratory: Reports episode of SOB Onset: The symptoms/episode began/occurred this morning, the patient reports symptoms have resolved. Historical: - Allergies: 07:36 PENICILLINS; tw2 07:36 EGG/POULTRY; tw2 - PMHx: 07:36 Asthma; tw2 - PSHx: 07:36 R arm; tw2 - Immunization history:: Adult Immunizations. - Social history:: Smoking status: . - Ebola Screening: : Patient denies travel to an Ebola-affected area in the 21 days before illness onset. Screenin:36 Abuse screen: Denies threats or abuse. Nutritional screening: No deficits noted. tw2 Tuberculosis screening: No symptoms or risk factors identified. Fall Risk None identified. Assessment: 07:30 General: Appears in no apparent distress. well groomed, well developed, well nourished, sg Behavior is calm, cooperative, appropriate for age, quiet. Neuro: Level of Consciousness is awake, alert, obeys commands, Oriented to person, place, time. Cardiovascular: Heart tones S1 S2 present Patient's skin is warm and dry. Chest pain is denied. Respiratory: Airway is patent Respiratory effort is even, unlabored, Respiratory pattern is regular, symmetrical, Breath sounds are clear. GI: Abdomen is round non-distended. : No signs and/or symptoms were reported regarding the genitourinary system. EENT: No signs and/or symptoms were reported regarding the EENT system. Derm: Skin is pink, warm \T\ dry. Musculoskeletal: Circulation, motion, and sensation intact. Range of motion: intact in all extremities. 07:32 Reassessment: provider at bedside at this time. tw2 07:52 Reassessment: Patient appears in no apparent distress at this time. Patient and/or sg family updated on plan of care and expected duration. Pain level reassessed. xray at bedside at this time. 08:13 Reassessment: Patient appears in no apparent distress at this time. xray at bedside for sg repeat exam. Vital Signs: 07:34 BP 138 / 99; Pulse 60; Resp 17; Temp 97.9(O); Pulse Ox 100% on R/A; Weight 79.38 kg tw2 (R); Height 6 ft. 1 in. (185.42 cm); Pain 0/10; 08:30 BP 136 / 89; Pulse 66; Resp 18; Temp 97.9; Pulse Ox 100% on R/A; Pain 0/10; sg 07:34 Body Mass Index 23.09 (79.38 kg, 185.42 cm) tw2 ED Course: 07:28 Bed in low position. Call light in reach. Side rails up X2. retail training manager on. Pulse tw2 ox on. NIBP on. 07:31 Patient arrived in ED. tw2 07:31 John Hines, SUSANNE is Primary Nurse. sg 07:32 Lonny Cartagena MD is Attending Physician. ps1 07:34 Triage completed. tw2 07:35 Arm band placed on. tw2 08:40 No provider procedures requiring assistance completed. Patient did not have IV access sg during this emergency room visit. 09:10 CXR XRAY In Process Unspecified. EDMS Administered Medications: 07:52 Drug: Zofran 4 mg Route: PO; sg Outcome: 08:31 Discharge ordered by . ps1 08:40 Discharged to home ambulatory, with family, with friend. sg 08:40 Condition: good 08:40 Discharge instructions given to patient, Instructed on discharge instructions, follow up and referral plans. medication usage, safety practices, Demonstrated understanding of instructions, follow-up care, medications, Prescriptions given X 3. 08:43 Patient left the ED. Signatures: Dispatcher [employer] EDMS John Hines RN RN Lorri Le RN RN Mandy Marin RN RN tw2 Lonny Cartagena MD MD ps1 Corrections: (The following items were deleted from the chart) 07:37 07:37 Reassessment: provider at bedside at this time. tw2 tw2
[2019-03-12 08:48] VITALS: BP 138/99; TEMP 97.9; O2SAT 100
--- NOTE | 2019-03-12 09:58 | RAD REPORT ---
EXAM DESCRIPTION: RAD - Chest Single View - 03/12/2019 9:08 am CLINICAL HISTORY: Cough, dyspnea COMPARISON: February 2018 TECHNIQUE: AP portable chest image was obtained 0755 hours . FINDINGS: Lungs are clear. Heart and vasculature are normal. No measurable pleural effusion and no p neumothorax. No acute bony abnormality seen. No acute aortic findings suspected. IMPRESSION: No acute cardiopulmonary process. No significant interval change.
== END 2019-03-12 08:43 | disposition home or self-care (01) ==
LOC: ER 07:28
DX: J98.01 Acute bronchospasm (principal); F41.1 Generalized anxiety disorder; Z88.0 Allergy status to penicillin; Z91.012 Allergy to eggs; Z91.018 Allergy to other foods
CPT/HCPCS: 71045; 99284

== ENCOUNTER 2019-06-06 12:04 | Emergency (ER) | payer SELFPAY ==
--- NOTE | 2019-06-06 13:29 | RAD REPORT ---
EXAM DESCRIPTION: RAD - Chest Single View - 06/06/2019 1:23 pm CLINICAL HISTORY: DYSPNEA Chest pain. COMPARISON: Chest Single View dated 03/12/2019; Chest Pa And Lat (2 Views) dated 02/23/2018; CHEST S TANYA VIEW dated 02/10/2008; CHEST PA AND LAT 2 VIEW dated 03/21/2005 FINDINGS: Portable technique limits examination quality. The lungs are grossly clear. The heart is normal in size. No displaced fractures. IMPRESSION: No acute intrathoracic process suspected.
--- NOTE | 2019-06-06 14:02 | ER ---
Nurse's Notes [facility] Name: Brett Santo Jr Age: 39 yrs Sex: Male : 1980 Arrival Date: 06/06/2019 Time: 12:09 Bed 14 Private MD: Diagnosis: Asthma Presentation: 06/05 12:25 Chief complaint: Patient states: neb not working at home, started yesterday, denies dm5 fever, lower back pain, denies travel or known exposure with a positive lab patient. Coronavirus screen: reports shortness of breath. Ebola Screen: Patient negative for fever greater than or equal to 101.5 degrees Fahrenheit, and additional compatible Ebola Virus Disease symptoms Patient denies exposure to infectious person. Patient denies travel to an Ebola-affected area in the 21 days before illness onset. No symptoms or risks identified at this time. Initial Sepsis Screen: Does the patient meet any 2 criteria? No. Patient's initial sepsis screen is negative. Does the patient have a suspected source of infection? No. Patient's initial sepsis screen is negative. Risk Assessment: Do you want to hurt yourself or someone else? Patient reports no desire to harm self or others. 12:25 Method Of Arrival: Ambulatory dm5 12:25 Acuity: SERGIO 4 dm5 12:30 Onset of symptoms was June 06, 2019 at 06:00. bp Triage Assessment: 12:34 General: Appears in no apparent distress. comfortable, Behavior is cooperative, bp appropriate for age, anxious. Pain: Denies pain. EENT: No deficits noted. Neuro: No deficits noted. Cardiovascular: No deficits noted. Respiratory: Reports shortness of breath Onset: The symptoms/episode began/occurred today, the patient has mild shortness of breath. GI: No signs and/or symptoms were reported involving the gastrointestinal system. : No signs and/or symptoms were reported regarding the genitourinary system. Derm: No deficits noted. Musculoskeletal: No deficits noted. Historical: - Allergies: 12:31 EGG/POULTRY; dm5 12:31 PENICILLINS; dm5 - PMHx: 12:31 Asthma; dm5 - PSHx: 12:31 None; dm5 - Immunization history:: Adult Immunizations up to date. - Social history:: Smoking status: Patient denies any tobacco usage or history of. Screenin:00 Abuse screen: Denies threats or abuse. Denies injuries from another. Nutritional bp screening: No deficits noted. Tuberculosis screening: No symptoms or risk factors identified. Fall Risk None identified. Assessment: 12:35 General: SEE TRIAGE NOTE. Cardiovascular: Rhythm is sinus rhythm. Respiratory: Airway bp is patent Respiratory effort is even, unlabored, Breath sounds are clear bilaterally. 14:20 Reassessment: PT D/C HOME, DX WITH ASTHMA. bp Vital Signs: 12:25 BP 136 / 103; Pulse 73; Resp 22; Temp 98.4; Pulse Ox 100% on R/A; dm5 13:00 BP 135 / 89; Pulse 81; Resp 17; Pulse Ox 100% ; bp 14:21 BP 141 / 89; Pulse 78; Resp 17; Temp 98.3; Pulse Ox 100% ; bp ED Course: 12:09 Patient arrived in ED. fj1 12:25 Norbert Merritt, SUSANNE is Primary Nurse. bp 12:30 Triage completed. dm5 12:38 Anjel Salinas PA is PHCP. jr8 12:38 Chema Bobo MD is Attending Physician. jr8 14:00 Patient has correct armband on for positive identification. Bed in low position. Call bp light in reach. Side rails up X2. 14:18 Arm band placed on. bp 14:21 No provider procedures requiring assistance completed. Patient did not have IV access bp during this emergency room visit. Administered Medications: No medications were administered Outcome: 13:57 Discharge ordered by . jr8 14:21 Discharged to home ambulatory. bp 14:21 Condition: stable 14:21 Discharge instructions given to patient, Instructed on discharge instructions, follow up and referral plans. medication usage, Demonstrated understanding of instructions, follow-up care, medications. 14:28 Patient left the ED. bp Signatures: Caitlin Cortez RN RN dmAnjel Beard PA PA jrNorbert Ritter, SUSANNE RN Benjamin Cancino fj
--- NOTE | 2019-06-06 14:03 | EDPHYS ---
Physician Documentation [facility] Name: Brett Santo Jr Age: 39 yrs Sex: Male : 1980 Arrival Date: 06/06/2019 Time: 12:09 Bed 14 Private MD: ED Physician Chema Bobo HPI: 06/05 13:53 This 39 yrs old Black Male presents to ER via Ambulatory with complaints of Shortness jr8 Of Breath, Breathing Difficulty. 13:53 The patient has shortness of breath at rest. Onset: The symptoms/episode began/occurred jr8 acutely, yesterday. Duration: The symptoms are intermittent. The patient's shortness of breath has no apparent modifying factors. Associated signs and symptoms: Pertinent positives: non-productive cough. Severity of symptoms: At their worst the symptoms were mild in the emergency department the symptoms are unchanged. It is unknown whether or not the patient has had similar symptoms in the past. The patient has not recently seen a physician. Patient with history of asthma. Stated that he used his breathing treatment yesterday and today with little help. Denies fevers or other symptoms except cough. Historical: - Allergies: 12:31 EGG/POULTRY; dm5 12:31 PENICILLINS; dm5 - PMHx: 12:31 Asthma; dm5 - PSHx: 12:31 None; dm5 - Immunization history:: Adult Immunizations up to date. - Social history:: Smoking status: Patient denies any tobacco usage or history of. ROS: 13:53 Eyes: Negative for injury, pain, redness, and discharge, ENT: Negative for injury, jr8 pain, and discharge, Neck: Negative for injury, pain, and swelling, Cardiovascular: Negative for chest pain, palpitations, and edema, Abdomen/GI: Negative for abdominal pain, nausea, vomiting, diarrhea, and constipation, Back: Negative for injury and pain, MS/Extremity: Negative for injury and deformity, Skin: Negative for injury, rash, and discoloration, Neuro: Negative for headache, weakness, numbness, tingling, and seizure. 13:53 Respiratory: Positive for cough, shortness of breath, wheezing. Exam: 13:53 Eyes: Pupils equal round and reactive to light, extra-ocular motions intact. Lids and jr8 lashes normal. Conjunctiva and sclera are non-icteric and not injected. Cornea within normal limits. Periorbital areas with no swelling, redness, or edema. ENT: Nares patent. No nasal discharge, no septal abnormalities noted. Tympanic membranes are normal and external auditory canals are clear. Oropharynx with no redness, swelling, or masses, exudates, or evidence of obstruction, uvula midline. Mucous membranes moist. Neck: Trachea midline, no thyromegaly or masses palpated, and no cervical lymphadenopathy. Supple, full range of motion without nuchal rigidity, or vertebral point tenderness. No Meningismus. Cardiovascular: Regular rate and rhythm with a normal S1 and S2. No gallops, murmurs, or rubs. Normal PMI, no JVD. No pulse deficits. Respiratory: Lungs have equal breath sounds bilaterally, clear to auscultation and percussion. No rales, rhonchi or wheezes noted. No increased work of breathing, no retractions or nasal flaring. Abdomen/GI: Soft, non-tender, with normal bowel sounds. No distension or tympany. No guarding or rebound. No evidence of tenderness throughout. Back: No spinal tenderness. No costovertebral tenderness. Full range of motion. Skin: Warm, dry with normal turgor. Normal color with no rashes, no lesions, and no evidence of cellulitis. MS/ Extremity: Pulses equal, no cyanosis. Neurovascular intact. Full, normal range of motion. Neuro: Awake and alert, GCS 15, oriented to person, place, time, and situation. Cranial nerves II-XII grossly intact. Motor strength 5/5 in all extremities. Sensory grossly intact. Cerebellar exam normal. Normal gait. Vital Signs: 12:25 BP 136 / 103; Pulse 73; Resp 22; Temp 98.4; Pulse Ox 100% on R/A; dm5 13:00 BP 135 / 89; Pulse 81; Resp 17; Pulse Ox 100% ; bp 14:21 BP 141 / 89; Pulse 78; Resp 17; Temp 98.3; Pulse Ox 100% ; bp MDM: 12:38 Patient medically screened. jr8 13:53 Data reviewed: vital signs, nurses notes, lab test result(s), radiologic studies, plain jr8 films. Data interpreted: Pulse oximetry: on room air is 100 %. Interpretation: normal. Counseling: I had a detailed discussion with the patient and/or guardian regarding: the historical points, exam findings, and any diagnostic results supporting the discharge/admit diagnosis, lab results, radiology results, the need for outpatient follow up, a family practitioner, to return to the emergency department if symptoms worsen or persist or if there are any questions or concerns that arise at home. 06/05 12:38 Order name: Influenza Screen (a \T\ B) jr8 06/05 13:24 Order name: Influenza Screen (A EDMS 06/05 12:38 Order name: XRAY Chest (1 view) jr8 Administered Medications: No medications were administered Disposition: 14:39 Co-signature as Attending Physician, Chema Bobo MD. rn Disposition: 06/06/19 13:57 Discharged to Home. Impression: Asthma. - Condition is Stable. - Discharge Instructions: Asthma, Acute Bronchospasm. - Prescriptions for Prednisone 20 mg Oral Tablet - take 2 tablet by ORAL route once daily for 5 days; 10 tablet. Albuterol Sulfate 2.5 mg /3 mL (0.083 %) Inhalation Solution for Nebulization - inhale 1 unit by NEBULIZATION route every 8 hours As needed; 1 box. Albuterol Sulfate 90 mcg/actuation - inhale 1-2 puff by INHALATION route every 4-6 hours; 1 Inhaler. - Medication Reconciliation Form, Thank You Letter, Antibiotic Education, Prescription Opioid Use form. - Follow up: Private Physician; When: 5 - 6 days; Reason: Recheck today's complaints, Continuance of care, Re-evaluation by your physician. - Problem is new. - Symptoms have improved. Signatures: [facility] Caitlin Cortez, RN RN dm5 Chema Bobo MD MD rn Roszak, Josh, PA PA jr8 Norbert Merritt RN RN bp Corrections: (The following items were deleted from the chart) 14:28 13:57 06/06/2019 13:57 Discharged to Home. Impression: Asthma. Condition is Stable. bp Forms are Medication Reconciliation Form, Thank You Letter, Antibiotic Education, Prescription Opioid Use. Follow up: Private Physician; When: 5 - 6 days; Reason: Recheck today's complaints, Continuance of care, Re-evaluation by your physician. Problem is new. Symptoms have improved. jr8
[2019-06-06 14:54] VITALS: O2SAT 100
[2019-06-06 14:56] VITALS: BP 141/89; TEMP 98.3
== END 2019-06-06 14:28 | disposition home or self-care (01) ==
LOC: ER 12:04
DX: J45.909 Unspecified asthma, uncomplicated (principal); Z88.0 Allergy status to penicillin; Z91.012 Allergy to eggs
CPT/HCPCS: 71045; 87804; 99284

== ENCOUNTER 2019-10-18 07:33 | Emergency (ER) | payer SELFPAY ==
[2019-10-18 08:16] LABS: Absolute Lymphocytes (CBC) 1.5 K/uL (0.7-4.9); Basophils % 1.2 % (0-1.3); Lymphocytes % 24.2 % (15.3-44.8); MPV 9.6 fL (7.6-11.3); RBC Red Blood Cell Count 4.33 M/uL (4.33-5.43)
[2019-10-18 08:17] LABS: Protime INR 1.11
[2019-10-18 08:39] LABS: ALT/SGPT 19 U/L (12-78); AST/SGOT 17 U/L (15-37); Albumin 4.3 g/dL (3.4-5.0); Alkaline Phosphatase 76 U/L (45-117); BUN Blood Urea Nitrogen 20 mg/dL (7-18); Bicarbonate 26 mmol/L (21-32); Bilirubin Direct 0.3 mg/dL (0-0.2); Bilirubin Total 1.1 mg/dL (0.2-1.0); Creatine Phosphokinase 245 U/L (39-308); Glucose Level 100 mg/dL (74-106); Magnesium 1.8 mg/dL (1.8-2.4); NT PRO-BNP 8 pg/mL (<125); Potassium 3.6 mmol/L (3.5-5.1); Protein, Total 8.6 g/dL (6.4-8.2); Sodium Level 141 mmol/L (136-145); Troponin (Emerg Dept Use Only) < 0.02 ng/mL (0.0-0.045)
[2019-10-18] MEDS ORDERED: NA CHLORIDE 0.9% 1,000 ML ONE (08:55)
--- NOTE | 2019-10-18 08:58 | RAD REPORT ---
EXAM DESCRIPTION: RAD - Chest Single View - 10/18/2019 8:33 am CLINICAL HISTORY: shortness of breathcommon dyspnea COMPARISON: Portable May 2019 TECHNIQUE: AP portable chest image was obtained 10/18/2019 8:33 am . FINDINGS: Lungs are clear. Heart and vasculature are normal. No measurable pleural effusion and no p neumothorax. No acute bony abnormality seen. No acute aortic findings suspected. IMPRESSION: No acute cardiopulmonary process.
--- NOTE | 2019-10-18 09:38 | EDPHYS ---
Physician Documentation [facility] Name: Brett Santo Jr Age: 39 yrs Sex: Male : 1980 Arrival Date: 10/18/2019 Time: 07:33 Bed 6 Private MD: ED Physician Kishore Pandey HPI: 10/17 08:05 This 39 yrs old Black Male presents to ER via Ambulatory with complaints of Breathing jmm Difficulty. 08:05 The patient has shortness of breath at rest. Onset: The symptoms/episode began/occurred jmm gradually, 2 day(s) ago. Duration: The symptoms are continuous. The patient's shortness of breath is aggravated by nothing, is alleviated by nothing. This is a 39 year old male with a history of asthma and htn that presents to the ED with complaints of shortness of breath and excessive thirst beginning 2 days ago. 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 Denies fever or cough. . Historical: - Allergies: 07:41 EGG/POULTRY; sv 07:41 PENICILLINS; sv - Home Meds: 07:41 Lisinopril Oral [Active]; sv - PMHx: 07:41 Asthma; Hypertension; sv - PSHx: 07:41 right arm; sv - Immunization history:: Adult Immunizations up to date. - Social history:: Smoking status: Patient reports the use of cigarette tobacco products, smokes one-half pack cigarettes per day. ROS: 08:05 Constitutional: Negative for fever, chills, and weight loss, Cardiovascular: Negative jmm for chest pain, palpitations, and edema. 08:05 Respiratory: Positive for shortness of breath. 08:05 All other systems are negative. Exam: 08:05 Constitutional: This is a well developed, well nourished patient who is awake, alert, jmm and in no acute distress. Head/Face: atraumatic. Eyes: EOMI, no conjunctival erythema appreciated ENT: Moist Mucus Membranes Neck: Trachea midline, Supple Chest/axilla: Normal chest wall appearance and motion. Cardiovascular: Regular rate and rhythm. No edema appreciated Respiratory: Normal respirations, no respiratory distress appreciated Abdomen/GI: Non distended, soft Back: Normal ROM Skin: General appearance color normal MS/ Extremity: Moves all extremities, no obvious deformities appreciated, no edema noted to the lower extremities Neuro: Awake and alert, normal gait Psych: Behavior is normal, Mood is normal, Patient is cooperative and pleasant 17:42 ECG was reviewed by the Attending Physician. [facility] Vital Signs: 07:39 BP 138 / 92; Pulse 69; Resp 22; Temp 98.2(O); Pulse Ox 98% ; Weight 79.38 kg; Height 6 sv ft. 1 in. (185.42 cm); 08:33 BP 155 / 107; Pulse 60; Resp 17; Pulse Ox 98% ; sv 09:15 BP 165 / 130; Pulse 70; Resp 19; Pulse Ox 99% ; sv 07:39 Body Mass Index 23.09 (79.38 kg, 185.42 cm) sv MDM: 07:37 Patient medically screened. [facility] 09:36 Data reviewed: vital signs, nurses notes. ED course: Patient is alert and non toxic in [facility] appearance in the ED. No signs of resp distress. Patient is advised to follow up with pcp. I do not currently suspect ACS, PE, Rhabdo, TETE. . 10/17 07:45 Order name: Basic Metabolic Panel [facility] 10/17 07:45 Order name: CBC with Diff [facility] 10/17 07:45 Order name: LFT's [facility] 10/17 07:45 Order name: Magnesium [facility] 10/17 07:45 Order name: NT PRO-BNP [facility] 10/17 07:45 Order name: PT-INR [facility] 10/17 07:45 Order name: Troponin (emerg Dept Use Only) [facility] 10/17 07:47 Order name: CPK [facility] 10/17 08:18 Order name: CBC with Automated Diff; Complete Time: 08:41 EDMS 10/17 08:18 Order name: Protime (+INR); Complete Time: 08:41 EDMS 10/17 08:39 Order name: Basic Metabolic Panel; Complete Time: 08:41 EDMS 10/17 08:39 Order name: Liver (Hepatic) Function; Complete Time: 08:41 EDMS 10/17 08:39 Order name: Creatine Phosphokinase; Complete Time: 08:41 EDMS 10/17 08:39 Order name: Troponin (Emerg Dept Use Only); Complete Time: 08:41 EDMS 10/17 07:45 Order name: XRAY Chest (1 view) [facility] 10/17 07:45 Order name: EKG; Complete Time: 07:46 [facility] 10/17 07:45 Order name: Cardiac monitoring; Complete Time: 08:08 [facility] 10/17 07:45 Order name: EKG - Nurse/Tech; Complete Time: 08:08 [facility] 10/17 07:45 Order name: IV Saline Lock; Complete Time: 08:08 [facility] 10/17 07:45 Order name: Labs collected and sent; Complete Time: 08:08 [facility] 10/17 07:45 Order name: O2 Per Protocol; Complete Time: 08:08 [facility] 10/17 07:45 Order name: O2 Sat Monitoring; Complete Time: 08:08 [facility] 08 08:39 Order name: NT PRO-BNP; Complete Time: 08:41 EDMS 08 08:39 Order name: Magnesium; Complete Time: 08:41 EDMS 10/17 08:59 Order name: RAD; Complete Time: 09:06 EDMS 08 09:07 Order name: D-Dimer [facility] 10/17 09:17 Order name: D-Dimer; Complete Time: 09:35 EDMS EC:42 Rate is 57 beats/min. QRS [place] is Normal. [place] interval is normal. QRS interval is jmm normal. QT interval is normal. No Q waves. T waves are Normal. No ST changes noted. Reviewed by me. Administered Medications: 08:47 Drug: NS 0.9% 1000 ml Route: IV; Rate: 1 bolus; Site: right antecubital; sv 10:29 Follow up: Response: No adverse reaction; IV Status: Completed infusion; IV Intake: sv 1000ml Disposition: 10/18 08:00 Co-signature as Attending Physician, Kishore Pandey MD I agree with the assessment and kdr plan of care. Disposition: 10/18/19 09:37 Discharged to Home. Impression: Shortness of breath, Dehydration. - Condition is Stable. - Discharge Instructions: Dehydration, Adult, Shortness of Breath. - Work release form, Medication Reconciliation Form, Thank You Letter, Antibiotic Education, Prescription Opioid Use form. - Follow up: Private Physician; When: 2 - 3 days; Reason: Recheck today's complaints, Continuance of care, Re-evaluation by your physician. Signatures: Dispatcher [facility] Germaine Mack RN RN sv Rittger, Kevin, MD MD [facility] Rosail, Carlos, PA PA jmm Corrections: (The following items were deleted from the chart) 10/17 10:30 09:37 10/18/2019 09:37 Discharged to Home. Impression: Shortness of breath; sv Dehydration. Condition is Stable. Forms are Work release form, Medication Reconciliation Form, Thank You Letter, Antibiotic Education, Prescription Opioid Use. Follow up: Private Physician; When: 2 - 3 days; Reason: Recheck today's complaints, Continuance of care, Re-evaluation by your physician. tom
--- NOTE | 2019-10-18 09:38 | ER ---
Nurse's Notes [facility] Name: Brett Santo Jr Age: 39 yrs Sex: Male : 1980 Arrival Date: 10/18/2019 Time: 07:33 Bed 6 Private MD: Diagnosis: Shortness of breath;Dehydration Presentation: 10/17 07:39 Chief complaint: Patient states: dyspnea since Tues, hx asthma, no relief with sv inhalers. c/o decreased appetite. Coronavirus screen: Client denies travel out of the [place] in the last 14 days. difficulty breathing, Client presents with at least one sign or symptom that may indicate coronavirus-19. Standard/surgical mask placed on the client. Provider contacted for isolation considerations. Ebola Screen: No symptoms or risks identified at this time. Initial Sepsis Screen: Does the patient meet any 2 criteria? RR > 20 per min. No. Patient's initial sepsis screen is negative. Does the patient have a suspected source of infection? No. Patient's initial sepsis screen is negative. Risk Assessment: Do you want to hurt yourself or someone else? Patient reports no desire to harm self or others. Onset of symptoms was October 16, 2019. 07:39 Method Of Arrival: Ambulatory sv 07:39 Acuity: SERGIO 3 sv Triage Assessment: 07:41 General: Appears in no apparent distress. uncomfortable, slender, Behavior is calm, sv cooperative, appropriate for age. Pain: Denies pain. Neuro: Level of Consciousness is awake, alert, obeys commands, Oriented to person, place, time, situation, Moves all extremities. Full function Gait is steady. Respiratory: Reports shortness of breath Airway is patent Respiratory effort is even, unlabored, Respiratory pattern is symmetrical, tachypnea Onset: The symptoms/episode began/occurred 2 days ago, the patient has mild shortness of breath. Derm: Skin is pink, warm \T\ dry. Historical: - Allergies: 07:41 EGG/POULTRY; sv 07:41 PENICILLINS; sv - Home Meds: 07:41 Lisinopril Oral [Active]; sv - PMHx: 07:41 Asthma; Hypertension; sv - PSHx: 07:41 right arm; sv - Immunization history:: Adult Immunizations up to date. - Social history:: Smoking status: Patient reports the use of cigarette tobacco products, smokes one-half pack cigarettes per day. Screenin:42 Abuse screen: Denies threats or abuse. Denies injuries from another. Nutritional sv screening: No deficits noted. Tuberculosis screening: No symptoms or risk factors identified. Fall Risk None identified. Assessment: 08:47 Reassessment: Patient appears in no apparent distress at this time. No changes from sv previously documented assessment. Patient and/or family updated on plan of care and expected duration. Pain level reassessed. Patient is alert, oriented x 3, equal unlabored respirations, skin warm/dry/pink. 09:49 Reassessment: Pt finishing IVF before discharge. sv 10:29 Reassessment: Patient appears in no apparent distress at this time. Patient and/or sv family updated on plan of care and expected duration. Pain level reassessed. Patient is alert, oriented x 3, equal unlabored respirations, skin warm/dry/pink. Patient denies pain at this time. Patient states feeling better. Patient states symptoms have improved. Vital Signs: 07:39 BP 138 / 92; Pulse 69; Resp 22; Temp 98.2(O); Pulse Ox 98% ; Weight 79.38 kg; Height 6 sv ft. 1 in. (185.42 cm); 08:33 BP 155 / 107; Pulse 60; Resp 17; Pulse Ox 98% ; sv 09:15 BP 165 / 130; Pulse 70; Resp 19; Pulse Ox 99% ; sv 07:39 Body Mass Index 23.09 (79.38 kg, 185.42 cm) sv ED Course: 07:33 Patient arrived in ED. ds1 07:35 Germaine Moffett RN is Primary Nurse. sv 07:36 Carlos Brito PA is PHCP. [facility] 07:36 Kishore Pandey MD is Attending Physician. jmm 07:40 Triage completed. sv 07:41 Arm band placed on. sv 07:42 Patient has correct armband on for positive identification. Bed in low position. Call sv light in reach. Pulse ox on. NIBP on. Door closed. Head of bed elevated. 07:43 Nurse Practitioner and/or Physician Pet Care Technician to see patient. sv 08:00 Inserted saline lock: 20 gauge in right antecubital area, using aseptic technique. sv Blood collected. Flushed right antecubital with 5 ml normal saline. 08:01 EKG done, by ED staff, reviewed by Carlos GARCIA. sv 08:13 CPK Sent. sv 08:13 Basic Metabolic Panel Sent. sv 08:13 CBC with Diff Sent. sv 08:13 LFT's Sent. sv 08:13 Magnesium Sent. sv 08:13 NT PRO-BNP Sent. sv 08:13 PT-INR Sent. sv 08:13 Troponin (emerg Dept Use Only) Sent. sv 08:16 X-ray(s) taken. sv 08:28 XRAY Chest (1 view) Sent. sv 08:34 Awaiting lab results, Awaiting radiology results. Awaiting re-evaluation by ER provider.sv 09:10 D-Dimer Sent. sv 09:49 No provider procedures requiring assistance completed. sv 10:29 IV discontinued, intact, bleeding controlled, No redness/swelling at site. Pressure sv dressing applied. Administered Medications: 08:47 Drug: NS 0.9% 1000 ml Route: IV; Rate: 1 bolus; Site: right antecubital; sv 10:29 Follow up: Response: No adverse reaction; IV Status: Completed infusion; IV Intake: sv 1000ml Intake: 10:29 IV: 1000ml; Total: 1000ml. sv Outcome: 09:37 Discharge ordered by MD. jm 10:29 Discharged to home ambulatory. sv 10:29 Condition: stable 10:29 Discharge instructions given to patient, Instructed on discharge instructions, follow up and referral plans. Demonstrated understanding of instructions, follow-up care. 10:30 Patient left the ED. sv Signatures: Germaine Moffett RN RN sv Mickail, Joel, PA PA [facility] Margoth Mcqueen ds1 Corrections: (The following items were deleted from the chart) 07:42 07:39 Chief complaint: Patient states: dyspnea since Tues, hx asthma, no relief with sv inhalers. sv 07:43 07:39 Pulse 69bpm; Resp 22bpm; Pulse Ox 98%; 79.38 kg; Height 6 ft. 1 in.; BMI: 23.0; svsv
[2019-10-18 10:37] VITALS: TEMP 98.2
[2019-10-18 10:39] VITALS: BP 165/130; O2SAT 99
--- NOTE | 2019-10-19 15:19 | EKG ---
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
== END 2019-10-18 10:30 | disposition home or self-care (01) ==
LOC: ER 07:33
DX: R06.02 Shortness of breath (principal); E86.0 Dehydration; Z91.012 Allergy to eggs; Z88.0 Allergy status to penicillin; I10 Essential (primary) hypertension; F17.210 Nicotine dependence, cigarettes, uncomplicated
CPT/HCPCS: 36415; 71045; 80048; 80076; 82550; 83735; 83880; 84484; 85025; 85379; 85610; 93005; 96360; 96361; 99284; J7030

== ENCOUNTER 2019-12-27 07:05 | Emergency (ER) | payer SELFPAY ==
[2019-12-27] MEDS ORDERED: HYDROCODONE/APAP 10/325 TAB ONE (07:57)
--- NOTE | 2019-12-27 09:00 | RAD REPORT ---
EXAM DESCRIPTION: CTAbdomen Pelvis W Contrast - 12/27/2019 8:44 am CLINICAL HISTORY: Abdominal pain. Right groin pain COMPARISON: Abdomen Pelvis W Contrast dated 07/20/2017 TECHNIQUE: Biphasic CT imaging of the abdomen and pelvis was performed with 100 ml non-ionic IV cont rast. All CT scans are performed using dose optimization technique as appropriate and may include automated exposure control or mA/KV adjustment according to patient size. FINDINGS: The lung bases are clear. The liver, spleen, pancreas, adrenal glands and kidneys are within normal limits. No bowel obstruction, free air, free fluid or abscess. The appendix is not identified as a discrete structure, however, no secondary findings of appendicitis are identified. No evidence of significan t lymphadenopathy. No suspicious bony findings. IMPRESSION: No acute intra-abdominal or pelvic finding.
--- NOTE | 2019-12-27 09:17 | RAD REPORT ---
EXAM DESCRIPTION: US - Scrotum Testicles - 12/27/2019 8:41 am CLINICAL HISTORY: right groin pain Right groin pain COMPARISON: PELVIS dated 02/10/2008 FINDINGS: The right testicle 4.1 x 3.0 x 2.1 cm. No intratesticular masses or evidence of testicular torsion. The left testicle 4.0 x 2.9 x 2.7 cm. No intratesticular masses or evidence of testicular torsion. Both epididymides are normal in size and appearance. No pathologic fluid collections. Bilateral varicoceles are present. IMPRESSION: Bilateral varicoceles are noted. No testicular mass or testicular torsion.
--- NOTE | 2019-12-27 09:43 | EDPHYS ---
Physician Documentation [facility] Name: Brett Santo Jr Age: 39 yrs Sex: Male : 1980 Arrival Date: 12/27/2019 Time: 07:07 Bed 15 Private MD: ED Physician Kishore Pandey HPI: 12/26 08:15 This 39 yrs old Black Male presents to ER via Ambulatory with complaints of Testicular kdr Pain. 08:15 The patient presents with scrotal pain, of the right side, without swelling. Onset: The kdr symptoms/episode began/occurred suddenly, yesterday. Modifying factors: The symptoms are alleviated by nothing, the symptoms are aggravated by movement, pressure. Associated signs and symptoms: Pertinent positives: Right groin pain. Severity of symptoms: At their worst the symptoms were mild, moderate, in the emergency department the symptoms are unchanged. The patient has not experienced similar symptoms in the past. The patient has not recently seen a physician. The patient states that he was lifting a table and felt some discomfort but hat it improved. Now it is worse this morning. Historical: - Allergies: 07:33 EGG/POULTRY; ss 07:33 PENICILLINS; ss - Home Meds: 07:33 lisinopril 5 mg Oral tab 1 tab once daily [Active]; ss - PMHx: 07:33 Asthma; Hypertension; ss - PSHx: 07:33 right humerus; ss - Immunization history:: Adult Immunizations up to date. - Social history:: Smoking status: Patient denies any tobacco usage or history of. ROS: 08:15 Constitutional: Negative for fever, chills, and weight loss, Eyes: Negative for injury, kdr pain, redness, and discharge, Neck: Negative for injury, pain, and swelling, Cardiovascular: Negative for chest pain, palpitations, and edema, Respiratory: Negative for shortness of breath, cough, wheezing, and pleuritic chest pain, Back: Negative for injury and pain, : Negative for injury, bleeding, discharge, and swelling, MS/Extremity: Negative for injury and deformity, Skin: Negative for injury, rash, and discoloration, Neuro: Negative for headache, weakness, numbness, tingling, and seizure activity. Psych: Negative for depression, anxiety, suicide ideation, homicidal ideation, and hallucinations, Allergy/Immunology: Negative for hives, rash, and allergies, Endocrine: Negative for neck swelling, polydipsia, polyuria, polyphagia, and marked weight changes, Hematologic/Lymphatic: Negative for swollen nodes, abnormal bleeding, and unusual bruising. Exam: 10:41 Constitutional: This is a well developed, well nourished patient who is awake, alert, kdr and in no acute distress. Head/Face: Normocephalic, atraumatic. Eyes: Pupils equal round and reactive to light, extra-ocular motions intact. Lids and lashes normal. Conjunctiva and sclera are non-icteric and not injected. Cornea within normal limits. Periorbital areas with no swelling, redness, or edema. Neck: Trachea midline, no thyromegaly or masses palpated, and no cervical lymphadenopathy. Supple, full range of motion without nuchal rigidity, or vertebral point tenderness. No Meningismus. Chest/axilla: Normal chest wall appearance and motion. Nontender with no deformity. No lesions are appreciated. Cardiovascular: Regular rate and rhythm with a normal S1 and S2. No gallops, murmurs, or rubs. Normal PMI, no JVD. No pulse deficits. Respiratory: Lungs have equal breath sounds bilaterally, clear to auscultation and percussion. No rales, rhonchi or wheezes noted. No increased work of breathing, no retractions or nasal flaring. Abdomen/GI: Soft, non-tender, with normal bowel sounds. No distension or tympany. No guarding or rebound. No evidence of tenderness throughout. Skin: Warm, dry with normal turgor. Normal color with no rashes, no lesions, and no evidence of cellulitis. MS/ Extremity: Pulses equal, no cyanosis. Neurovascular intact. Full, normal range of motion. Neuro: Awake and alert, GCS 15, oriented to person, place, time, and situation. Cranial nerves II-XII grossly intact. Motor strength 5/5 in all extremities. Sensory grossly intact. Cerebellar exam normal. Normal gait. Psych: Awake, alert, with orientation to person, place and time. Behavior, mood, and affect are within normal limits. 10:41 : CVA tenderness, is absent, Male external genitalia: normal, tender in right groin and right suprapubic area - no masses noted. Vital Signs: 07:21 BP 130 / 84; Pulse 97; Resp 16; Temp 97.6(TE); Pulse Ox 100% on R/A; Weight 77.11 kg; ss Height 6 ft. 1 in. (185.42 cm); Pain 8/10; 07:35 BP 139 / 97; Pulse 61; Resp 15; Pulse Ox 100% on R/A; Pain 9/10; hb 09:15 BP 133 / 96; Pulse 62; Resp 15; Pulse Ox 99% ; hb 07:21 Body Mass Index 22.43 (77.11 kg, 185.42 cm) ss MDM: 09:42 Patient medically screened. kdr 10:43 Data reviewed: vital signs, nurses notes, lab test result(s), radiologic studies. kdr Counseling: I had a detailed discussion with the patient and/or guardian regarding: the historical points, exam findings, and any diagnostic results supporting the discharge/admit diagnosis, lab results, radiology results, the need for outpatient follow up. 12/26 08:19 Order name: Creatinine, Serum kdr 12/26 09:01 Order name: Creatinine; Complete Time: 09:40 EDMS 12/26 07:35 Order name: US Scrotum Testicles kdr 12/26 08:19 Order name: CT Abd/Pelvis - IV Contrast Only kdr 12/26 09:01 Order name: CT; Complete Time: 09:40 EDMS 12/26 09:18 Order name: CREATININE WHOLE BLOOD; Complete Time: 09:40 EDMS 12/26 09:18 Order name: US; Complete Time: 09:40 EDMS Administered Medications: 07:46 Drug: [place] 10 mg-325 mg 1 tabs Route: PO; hb 08:26 Follow up: Response: No adverse reaction hb Disposition: 12/27/19 09:42 Discharged to Home. Impression: Right groin pain. - Condition is Stable. - Discharge Instructions: Abdominal Pain, Adult, [id number], Testicular Self-Exam, [id number]. - Prescriptions for Tramadol 50 mg Oral Tablet - take 1 tablet by ORAL route every 8 hours as needed; 12 tablet. - Medication Reconciliation Form, Thank You Letter, Prescription Opioid Use, Work release form form. - Follow up: Private Physician; When: 2 - 3 days; Reason: If symptoms return, Further diagnostic work-up, Recheck today's complaints, Continuance of care, Re-evaluation by your physician. - Problem is new. - Symptoms have improved. Signatures: Dispatcher [employer] EDMS Kishore Pandey MD MD kdr Rhina Santos RN RN Lorri Le, SUSANNE RN hb Corrections: (The following items were deleted from the chart) 10:15 09:42 12/27/2019 09:42 Discharged to Home. Impression: Right groin pain. Condition is hb Stable. Forms are Medication Reconciliation Form, Thank You Letter, Antibiotic Education, Prescription Opioid Use. Follow up: Private Physician; When: 2 - 3 days; Reason: If symptoms return, Further diagnostic work-up, Recheck today's complaints, Continuance of care, Re-evaluation by your physician. Problem is new. Symptoms have improved. kdr
--- NOTE | 2019-12-27 09:43 | ER ---
Nurse's Notes [facility] Name: Brett Santo Jr Age: 39 yrs Sex: Male : 1980 Arrival Date: 12/27/2019 Time: 07:07 Bed 15 Private MD: Diagnosis: Right groin pain Presentation: 12/26 07:21 Chief complaint: Patient states: R testicular pain that began yesterday after lifting ss heavy object. Worse this morning. Coronavirus screen: Client denies travel out of the [place] in the last 14 days. Ebola Screen: Patient denies exposure to infectious person. Patient denies travel to an Ebola-affected area in the 21 days before illness onset. Initial Sepsis Screen: Does the patient meet any 2 criteria? No. Patient's initial sepsis screen is negative. Does the patient have a suspected source of infection? No. Patient's initial sepsis screen is negative. Risk Assessment: Do you want to hurt yourself or someone else? Patient reports no desire to harm self or others. Onset of symptoms was December 26, 2019. 07:21 Method Of Arrival: Ambulatory ss 07:21 Acuity: SERGIO 3 ss Historical: - Allergies: 07:33 EGG/POULTRY; ss 07:33 PENICILLINS; ss - Home Meds: 07:33 lisinopril 5 mg Oral tab 1 tab once daily [Active]; ss - PMHx: 07:33 Asthma; Hypertension; ss - PSHx: 07:33 right humerus; ss - Immunization history:: Adult Immunizations up to date. - Social history:: Smoking status: Patient denies any tobacco usage or history of. Screenin:35 Abuse screen: Denies threats or abuse. Denies injuries from another. Nutritional hb screening: No deficits noted. Tuberculosis screening: No symptoms or risk factors identified. Fall Risk None identified. Assessment: 07:35 General: Appears in no apparent distress. uncomfortable. Pain: Pain currently is 9 out hb of 10 on a pain scale. Neuro: Level of Consciousness is awake, alert, obeys commands, Oriented to person, place, time, situation. Cardiovascular: Capillary refill < 3 seconds Patient's skin is warm and dry. Respiratory: Respiratory effort is even, unlabored, Respiratory pattern is regular, symmetrical. GI: No signs and/or symptoms were reported involving the gastrointestinal system. : Reports right sided testicular pain. EENT: No signs and/or symptoms were reported regarding the EENT system. Derm: Skin is pink, warm \T\ dry. Musculoskeletal: No signs and/or symptoms reported regarding the musculoskeletal system. 07:52 Reassessment: US at bedside. hb 09:00 Reassessment: Patient appears in no apparent distress at this time. Patient and/or hb family updated on plan of care and expected duration. Pain level reassessed. Patient is alert, oriented x 3, equal unlabored respirations, skin warm/dry/pink. Vital Signs: 07:21 BP 130 / 84; Pulse 97; Resp 16; Temp 97.6(TE); Pulse Ox 100% on R/A; Weight 77.11 kg; ss Height 6 ft. 1 in. (185.42 cm); Pain 8/10; 07:35 BP 139 / 97; Pulse 61; Resp 15; Pulse Ox 100% on R/A; Pain 9/10; hb 09:15 BP 133 / 96; Pulse 62; Resp 15; Pulse Ox 99% ; hb 07:21 Body Mass Index 22.43 (77.11 kg, 185.42 cm) ED Course: 07:07 Patient arrived in ED. cl3 07:28 Kishore Pandey MD is Attending Physician. kdr 07:32 Triage completed. ss 07:33 Arm band placed on right wrist. ss 07:35 Patient has correct armband on for positive identification. Bed in low position. Call hb light in reach. Side rails up X 1. 07:42 Lorri eL, RN is Primary Nurse. hb 10:14 No provider procedures requiring assistance completed. IV discontinued, intact, hb bleeding controlled, No redness/swelling at site. Administered Medications: 07:46 Drug: Benedict 10 mg-325 mg 1 tabs Route: PO; hb 08:26 Follow up: Response: No adverse reaction hb Outcome: 09:42 Discharge ordered by . kdr 10:14 Discharged to home ambulatory, with significant other. hb 10:14 Condition: stable 10:14 Discharge instructions given to patient, Instructed on discharge instructions, follow up and referral plans. medication usage, Demonstrated understanding of instructions, follow-up care, medications, Prescriptions given X 1. 10:15 Patient left the ED. hb Signatures: Kishore Pandey MD MD kdr Smirch, Shelby, RN RN Lorri Le, RN RN hb Paulina Todd cl3
[2019-12-27 10:23] VITALS: TEMP 97.6
[2019-12-27 10:26] VITALS: BP 133/96; O2SAT 99
== END 2019-12-27 10:15 | disposition home or self-care (01) ==
LOC: ER 07:05
DX: R10.31 Right lower quadrant pain (principal); I10 Essential (primary) hypertension; Z88.0 Allergy status to penicillin; Z91.012 Allergy to eggs; Z91.018 Allergy to other foods
CPT/HCPCS: 36415; 74177; 76870; 82565; 99283; Q9967

== ENCOUNTER 2020-06-02 05:39 | Emergency (ER) | payer SELFPAY ==
--- NOTE | 2020-06-02 06:01 | ER ---
Nurse's Notes [facility] Name: Brett Santo Jr Age: 40 yrs Sex: Male : 1980 Arrival Date: 06/02/2020 Time: 05:40 Bed 20 Private MD: Diagnosis: Otitis Media Presentation: 06/02 05:49 Chief complaint: Patient states: left ear is hurting started a week ago but now it gets rr5 worse. when i bite it hurts so bad. Coronavirus screen: Client denies travel out of the [place] in the last 14 days. At this time, the client does not indicate any symptoms associated with coronavirus-19. Ebola Screen: Patient negative for fever greater than or equal to 101.5 degrees Fahrenheit, and additional compatible Ebola Virus Disease symptoms Patient denies exposure to infectious person. Patient denies travel to an Ebola-affected area in the 21 days before illness onset. Initial Sepsis Screen: Does the patient meet any 2 criteria? No. Patient's initial sepsis screen is negative. Does the patient have a suspected source of infection? No. Patient's initial sepsis screen is negative. Risk Assessment: Do you want to hurt yourself or someone else? Patient reports no desire to harm self or others. Onset of symptoms was May 26, 2020. 05:49 Method Of Arrival: Ambulatory rr5 05:49 Acuity: SERGIO 4 rr5 Historical: - Allergies: 05:53 EGG/POULTRY; rr5 05:53 PENICILLINS; rr5 - PMHx: 05:53 Asthma; Hypertension; rr5 - PSHx: 05:53 None; rr5 - Immunization history:: Adult Immunizations not up to date. - Social history:: Smoking status: Patient reports the use of cigarette tobacco products, 4 cigarette/day. Screenin:53 Abuse screen: Denies threats or abuse. Denies injuries from another. Nutritional rr5 screening: No deficits noted. Tuberculosis screening: No symptoms or risk factors identified. Fall Risk None identified. Total Song Fall Scale indicates No Risk (0-24 pts). Assessment: 05:54 General: Appears in no apparent distress. uncomfortable, Behavior is calm, cooperative, rr5 appropriate for age. Pain: Complains of pain in left ear Pain currently is 9 out of 10 on a pain scale. Quality of pain is described as aching, Pain began gradually, Is intermittent. Neuro: Level of Consciousness is awake, alert, obeys commands, Oriented to person, place, time. Cardiovascular: Capillary refill < 3 seconds Patient's skin is warm and dry. Respiratory: Airway is patent Respiratory effort is even, unlabored, Respiratory pattern is regular, symmetrical. EENT: Reports pain in left ear Pain is 9 out of 10 on a pain scale. Derm: Skin temperature is warm. 06:10 Reassessment: Patient appears in no apparent distress at this time. Patient is alert, rr5 oriented x 3, equal unlabored respirations, skin warm/dry/pink. discharge instruction given and explained without complaints made. Vital Signs: 05:49 BP 147 / 95; Pulse 80; Resp 17; Temp 97.5; Pulse Ox 100% ; Weight 81.65 kg; Height 6 rr5 ft. 1 in. (185.42 cm); Pain 9/10; 05:49 Body Mass Index 23.75 (81.65 kg, 185.42 cm) rr5 ED Course: 05:40 Patient arrived in ED. am4 05:41 Adelso Esparza, SUSANNE is Primary Nurse. rr5 05:47 Narinder Hull MD is Attending Physician. 7 05:52 Triage completed. rr5 05:53 Arm band placed on right wrist. rr5 05:54 Patient has correct armband on for positive identification. Bed in low position. Call rr5 light in reach. 06:10 Assist provider with bone marrow aspiration. Patient did not have IV access during this rr5 emergency room visit. Administered Medications: 05:59 Drug: Ibuprofen 800 mg Route: PO; rr5 06:11 Follow up: Response: No adverse reaction rr5 Outcome: 06:01 Discharge ordered by . [facility] 06:10 Discharged to home ambulatory. rr5 06:10 Condition: stable 06:10 Discharge instructions given to patient, Instructed on discharge instructions, follow up and referral plans. medication usage, Demonstrated understanding of instructions, follow-up care, medications, Prescriptions given X 2. 06:11 Patient left the ED. rr5 Signatures: Adelso Esparza RN RN rr5 Narinder Hull MD MD [facility]
--- NOTE | 2020-06-02 06:02 | EDPHYS ---
Physician Documentation [facility] Name: Brett Santo Jr Age: 40 yrs Sex: Male : 1980 Arrival Date: 06/02/2020 Time: 05:40 Bed 20 Private MD: ED Physician Narinder Hull HPI: 06/02 05:56 This 40 yrs old Black Male presents to ER via Ambulatory with complaints of Ear Pain. mh7 05:56 The patient presents with pain, moderate. The complaints affect the left ear. Onset: mh7 The symptoms/episode began/occurred 1 week(s) ago. Modifying factors: The symptoms are alleviated by nothing, the symptoms are aggravated by nothing. Associated signs and symptoms: Pertinent positives: sore throat, Pertinent negatives: cough, fever, lightheadedness, nausea, rhinorrhea, sinus trouble, shortness of breath, tinnitus, vertigo, vomiting. Severity of symptoms: At their worst the symptoms were moderate yesterday, in the emergency department the symptoms are unchanged. Historical: - Allergies: 05:53 EGG/POULTRY; rr5 05:53 PENICILLINS; rr5 - PMHx: 05:53 Asthma; Hypertension; rr5 - PSHx: 05:53 None; rr5 - Immunization history:: Adult Immunizations not up to date. - Social history:: Smoking status: Patient reports the use of cigarette tobacco products, 4 cigarette/day. ROS: 05:56 Constitutional: Negative for fever, chills, and weight loss, Eyes: Negative for injury, mh7 pain, redness, and discharge, Neck: Negative for injury, pain, and swelling, Cardiovascular: Negative for chest pain, palpitations, and edema, Respiratory: Negative for shortness of breath, cough, wheezing, and pleuritic chest pain, Abdomen/GI: Negative for abdominal pain, nausea, vomiting, diarrhea, and constipation, Back: Negative for injury and pain, : Negative for injury, bleeding, discharge, and swelling, MS/Extremity: Negative for injury and deformity, Skin: Negative for injury, rash, and discoloration, Neuro: Negative for headache, weakness, numbness, tingling, and seizure, Psych: Negative for depression, anxiety, suicide ideation, homicidal ideation, and hallucinations, Allergy/Immunology: Negative for hives, rash, and allergies, Endocrine: Negative for neck swelling, polydipsia, polyuria, polyphagia, and marked weight changes, Hematologic/Lymphatic: Negative for swollen nodes, abnormal bleeding, and unusual bruising. Exam: 05:56 Constitutional: This is a well developed, well nourished patient who is awake, alert, mh7 and in no acute distress. Head/Face: Normocephalic, atraumatic. Eyes: Pupils equal round and reactive to light, extra-ocular motions intact. Lids and lashes normal. Conjunctiva and sclera are non-icteric and not injected. Cornea within normal limits. Periorbital areas with no swelling, redness, or edema. 05:56 Neck: Trachea midline, no thyromegaly or masses palpated, and no cervical lymphadenopathy. Supple, full range of motion without nuchal rigidity, or vertebral point tenderness. No Meningismus. Chest/axilla: Normal chest wall appearance and motion. Nontender with no deformity. No lesions are appreciated. Cardiovascular: Regular rate and rhythm with a normal S1 and S2. No gallops, murmurs, or rubs. Normal PMI, no JVD. No pulse deficits. Respiratory: Lungs have equal breath sounds bilaterally, clear to auscultation and percussion. No rales, rhonchi or wheezes noted. No increased work of breathing, no retractions or nasal flaring. Abdomen/GI: Soft, non-tender, with normal bowel sounds. No distension or tympany. No guarding or rebound. No evidence of tenderness throughout. Back: No spinal tenderness. No costovertebral tenderness. Full range of motion. Skin: Warm, dry with normal turgor. Normal color with no rashes, no lesions, and no evidence of cellulitis. MS/ Extremity: Pulses equal, no cyanosis. Neurovascular intact. Full, normal range of motion. Neuro: Awake and alert, GCS 15, oriented to person, place, time, and situation. Cranial nerves II-XII grossly intact. Motor strength 5/5 in all extremities. Sensory grossly intact. Cerebellar exam normal. Normal gait. Psych: Awake, alert, with orientation to person, place and time. Behavior, mood, and affect are within normal limits. 05:56 ENT: External ear(s): are unremarkable, Ear canal(s): are normal, clear, TM's: bulging, on the left, dullness, on the left, erythema, that is mild, on the left, fluid levels, is not appreciated, hemotympanum, is not appreciated, loss of bony landmarks, is not appreciated, rupture, is not appreciated, Nose: is normal, Mouth: is normal, Posterior pharynx: is normal, airway is patent, no erythema, no exudate, no peritonsilar mass, no pooling of secretions, no swelling, normal tonsil apperance, normal sized tonsils, normal uvula appearance, normal uvula size. Vital Signs: 05:49 BP 147 / 95; Pulse 80; Resp 17; Temp 97.5; Pulse Ox 100% ; Weight 81.65 kg; Height 6 rr5 ft. 1 in. (185.42 cm); Pain 9/10; 05:49 Body Mass Index 23.75 (81.65 kg, 185.42 cm) rr5 MDM: 05:56 Differential diagnosis: otitis media, otitis externa, ruptured TM, foreign body, acute mh7 otalgia, cerumen impaction, barotrauma , serotympanum. Data reviewed: vital signs, nurses notes. Data interpreted: Pulse oximetry: on room air is 100 %. Interpretation: normal. Counseling: I had a detailed discussion with the patient and/or guardian regarding: the historical points, exam findings, and any diagnostic results supporting the discharge/admit diagnosis, the presence of at least one elevated blood pressure reading (>120/80) during this emergency department visit, the need for outpatient follow up, to return to the emergency department if symptoms worsen or persist or if there are any questions or concerns that arise at home. 06:[address] [facility] Administered Medications: 05:59 Drug: Ibuprofen 800 mg Route: PO; rr5 06:11 Follow up: Response: No adverse reaction rr5 Disposition: 06/02/20 06:01 Discharged to Home. Impression: Otitis Media. - Condition is Stable. - Discharge Instructions: Otitis Media, Adult, [id number]. - Prescriptions for Ibuprofen 800 mg Oral Tablet - take 1 tablet by ORAL route every 8 hours As needed take with food; 15 tablet. Zithromax Z- Jonah 250 mg Oral Tablet - take 1 tablet by ORAL route as directed for 5 days Day 1 - take two (2) tablets one time. Day 2, 3, 4 , 5 take one (1) tablet once daily.; 6 tablet. - Work release form, Medication Reconciliation Form, Thank You Letter, Antibiotic Education, Prescription Opioid Use form. - Follow up: Private Physician; When: 1 - 2 days; Reason: Worsening of condition, Recheck today's complaints, Continuance of care, Re-evaluation by your physician. - Problem is new. - Symptoms have improved. Signatures: Adelso Esparza RN RN rr5 Narinder Hull MD MD 7 Corrections: (The following items were deleted from the chart) 06:11 06:01 06/02/2020 06:01 Discharged to Home. Impression: Otitis Media. Condition is rr5 Stable. Forms are Medication Reconciliation Form, Thank You Letter, Antibiotic Education, Prescription Opioid Use. Follow up: Private Physician; When: 1 - 2 days; Reason: Worsening of condition, Recheck today's complaints, Continuance of care, Re-evaluation by your physician. Problem is new. Symptoms have improved. mh7
[2020-06-02] MEDS ORDERED: IBUPROFEN 400 MG TAB ONE (06:14)
[2020-06-02 06:17] VITALS: BP 147/95; TEMP 97.5; O2SAT 100
== END 2020-06-02 06:11 | disposition home or self-care (01) ==
LOC: ER 05:39
DX: H66.92 Otitis media, unspecified, left ear (principal); Z88.0 Allergy status to penicillin; Z91.012 Allergy to eggs; Z91.018 Allergy to other foods; F17.210 Nicotine dependence, cigarettes, uncomplicated
CPT/HCPCS: 99284

== ENCOUNTER 2020-07-29 06:33 | Emergency (ER) | payer SELFPAY ==
--- NOTE | 2020-07-29 07:39 | ER ---
Nurse's Notes [facility] [place] Name: Brett Santo Jr Age: 40 yrs Sex: Male : 1980 Arrival Date: 07/29/2020 Time: 06:42 Bed 16 Private MD: Diagnosis: Muscle spasm;Torticollis;Radiculopathy, cervical region Presentation: 07/29 07:01 Chief complaint: Patient states: he has been having neck pain radiating down his back x bb 3 days then this morning he started having numbness and tingling to his right arm the pain is so bad he cannot get comfortable to sit or sleep. Coronavirus screen: At this time, the client does not indicate any symptoms associated with coronavirus-19. Ebola Screen: No symptoms or risks identified at this time. Initial Sepsis Screen: Does the patient meet any 2 criteria? No. Patient's initial sepsis screen is negative. Does the patient have a suspected source of infection? No. Patient's initial sepsis screen is negative. Risk Assessment: Do you want to hurt yourself or someone else? Patient reports no desire to harm self or others. Onset of symptoms was July 29, 2020. 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 - Social history:: Smoking status: Patient reports the use of cigarette tobacco products, denies chronic smoking, but will smoke occasionally. - Family history:: not pertinent. - Hospitalizations: : No recent hospitalization is reported. Screenin:33 Abuse screen: Denies threats or abuse. Denies injuries from another. Nutritional jl7 screening: No deficits noted. Tuberculosis screening: No symptoms or risk factors identified. Fall Risk None identified. Assessment: 07:33 General: Appears in no apparent distress. uncomfortable, Behavior is calm, cooperative, jl7 appropriate for age. Pain: Complains of pain in neck Pain radiates to left trapezius and right trapezius Pain currently is 10 out of 10 on a pain scale. Quality of pain is described as aching, Pain began 2-3 days ago. Is continuous. Neuro: Level of Consciousness is awake, alert, obeys commands, Oriented to person, place, time, situation, Moves all extremities. Full function Gait is steady, Speech is normal. Cardiovascular: Patient's skin is warm and dry. Respiratory: Airway is patent Respiratory effort is even, unlabored, Respiratory pattern is regular, symmetrical. Derm: Skin is pink, warm \T\ dry. Vital Signs: 07:01 BP 144 / 97; Pulse 56; Resp 16 S; Temp 98.2(O); Pulse Ox 99% on R/A; Weight 77.11 kg bb (R); Height 6 ft. 1 in. (185.42 cm) (R); Pain 9/10; 07:01 Body Mass Index 22.43 (77.11 kg, 185.42 cm) ED Course: 06:42 Patient arrived in ED. es 06:58 Chema Bobo MD is Attending Physician. rn 07:03 Triage completed. bb 07:05 Arm band placed on Patient placed in an exam room, on a stretcher, on pulse oximetry. bb 07:11 Kelsey Grace, SUSANNE is Primary Nurse. jl7 07:33 Patient has correct armband on for positive identification. Placed in gown. Bed in low jl7 position. Call light in reach. Side rails up X 1. Pulse ox on. NIBP on. 07:55 No provider procedures requiring assistance completed. Patient did not have IV access jl7 during this emergency room visit. Administered Medications: 07:32 Drug: TORadol (ketorolac) 30 mg Route: IM; Site: left deltoid; jl7 07:55 Follow up: Response: No adverse reaction jl7 07:32 Drug: Decadron (dexamethasone) 10 mg Route: IM; Site: right deltoid; jl7 07:55 Follow up: Response: No adverse reaction jl7 Outcome: 07:38 Discharge ordered by . rn 07:55 Discharged to home ambulatory. jl7 07:55 Condition: stable 07:55 Discharge instructions given to patient, Instructed on discharge instructions, follow up and referral plans. medication usage, Demonstrated understanding of instructions, follow-up care, medications, Prescriptions given X 2. 07:55 Patient left the ED. jl7 Signatures: Leeanne Mullen Brenda, RN RN bb Chema Bobo MD MD rn Grace, SUSANNE Cole RN jl7
--- NOTE | 2020-07-29 07:39 | EDPHYS ---
Physician Documentation [facility] Name: Brett Santo Jr Age: 40 yrs Sex: Male : 1980 Arrival Date: 07/29/2020 Time: 06:42 Bed 16 Private MD: ED Physician Chema Bobo HPI: 07/29 07:34 This 40 yrs old Black Male presents to ER via Ambulatory with complaints of Neck Pain, rn >24Hrs Old, Shoulder Pain, Back Pain. 07:34 The patient or guardian complains of pain. The symptoms are located diffusely. Onset: rn The symptoms/episode began/occurred 3 day(s) ago. Context: The problem was sustained at home, The neck injury/problem resulted from from unknown cause. Associated signs and symptoms: Pertinent positives: tingling, Pertinent negatives: fever, headache, bladder incontinence, bowel incontinence, weakness. The pain radiates to the right arm. Modifying factors: The symptoms are alleviated by remaining still, the symptoms are aggravated by movement, pressure. Severity of symptoms: At their worst the symptoms were moderate, in the emergency department the symptoms are unchanged. The patient has not experienced similar symptoms in the past. REports woke up 3 days ago with neck pain, shoots to right upper arm/shoulder, worse with movement and palpation of shoulders, denies injury, no fever, no chest or abd pain. Not getting better so came in for eval. Reports intermittent tingling right upper arm, no weakness. . 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 - Social history:: Smoking status: Patient reports the use of cigarette tobacco products, denies chronic smoking, but will smoke occasionally. - Family history:: not pertinent. - Hospitalizations: : No recent hospitalization is reported. ROS: 07:34 Constitutional: Negative for fever, chills, and weight loss, Eyes: Negative for injury, rn pain, redness, and discharge, ENT: Negative for injury, pain, and discharge, Neck: + neck pain, no swelling or injury Cardiovascular: Negative for chest pain, palpitations, and edema, Respiratory: Negative for shortness of breath, cough, wheezing, and pleuritic chest pain, Abdomen/GI: Negative for abdominal pain, nausea, vomiting, diarrhea, and constipation, Back: Negative for injury and pain, MS/Extremity: Negative for injury and deformity, Skin: Negative for injury, rash, and discoloration, Neuro: Negative for headache, weakness, and seizure. Exam: 07:34 Constitutional: This is a well developed, well nourished patient who is awake, alert, rn and in no acute distress. Sitting on bed, facetiming with someone. Head/Face: Normocephalic, atraumatic. Eyes: Pupils equal round and reactive to light, extra-ocular motions intact. Lids and lashes normal. Conjunctiva and sclera are non-icteric and not injected. Cornea within normal limits. Periorbital areas with no swelling, redness, or edema. Neck: Trachea midline, no swelling, no crepitus. NO bony tenderness. Pain with rotations left and right and palpation over trapezius. Cardiovascular: Regular rate and rhythm. No pulse deficits. Respiratory: No increased work of breathing, no retractions or nasal flaring. Skin: Warm, dry with normal turgor. Normal color with no rashes, no lesions, and no evidence of cellulitis. MS/ Extremity: Pulses equal, no cyanosis. Neurovascular intact. Full, normal range of motion. Equal circumference. Neuro: Awake and alert, GCS 15, oriented to person, place, time, and situation. Cranial nerves II-XII grossly intact. Motor strength 5/5 in all extremities. Sensory grossly intact. Cerebellar exam normal. Normal gait. Vital Signs: 07:01 BP 144 / 97; Pulse 56; Resp 16 S; Temp 98.2(O); Pulse Ox 99% on R/A; Weight 77.11 kg bb (R); Height 6 ft. 1 in. (185.42 cm) (R); Pain 9/10; 07:01 Body Mass Index 22.43 (77.11 kg, 185.42 cm) bb MDM: 06:58 Patient medically screened. rn 07:34 Differential diagnosis: arthritis, Cervical Raiculopathy cervical strain, torticollis. rn Data reviewed: vital signs, nurses notes, and as a result, I will discharge patient. Counseling: I had a detailed discussion with the patient and/or guardian regarding: the historical points, exam findings, and any diagnostic results supporting the discharge/admit diagnosis, the need for outpatient follow up, to return to the emergency department if symptoms worsen or persist or if there are any questions or concerns that arise at home. Response to treatment: the patient's symptoms have mildly improved after treatment, and as a result, I will discharge patient. Special discussion: I discussed with the patient/guardian in detail that at this point there is no indication for admission to the hospital. It is understood, however, that if the symptoms persist or worsen the patient needs to return immediately for re-evaluation. Administered Medications: 07:32 Drug: TORadol (ketorolac) 30 mg Route: IM; Site: left deltoid; [facility] 07:55 Follow up: Response: No adverse reaction [facility] 07:32 Drug: Decadron (dexamethasone) 10 mg Route: IM; Site: right deltoid; jl7 07:55 Follow up: Response: No adverse reaction jl7 Disposition: 07/29/20 07:38 Discharged to Home. Impression: Muscle spasm, Torticollis, Radiculopathy, cervical region. - Condition is Stable. - Discharge Instructions: Cervical Radiculopathy, Muscle Cramps and Spasms, Acute Torticollis, Adult. - Prescriptions for Cyclobenzaprine 10 mg Oral Tablet - take 1 tablet by ORAL route every 8 hours As needed; 20 tablet. Medrol (Jonah) 4 mg Oral Tablets, Dose Pack - take 1 tablet by ORAL route as directed - follow package instructions; 1 packet. - Medication Reconciliation Form, Thank You Letter, Antibiotic Education, Prescription Opioid Use, Work release form form. - Follow up: Private Physician; When: As needed; Reason: Recheck today's complaints, Re-evaluation by your physician. - Problem is new. - Symptoms have improved. Signatures: Lien Nolen RN RN bb Nieto, Roman, MD MD rn Leal, Jahala, RN RN jl7 Corrections: (The following items were deleted from the chart) 07:55 07:38 07/29/2020 07:38 Discharged to Home. Impression: Muscle spasm; Torticollis; jl7 Radiculopathy, cervical region. Condition is Stable. Forms are Medication Reconciliation Form, Thank You Letter, Antibiotic Education, Prescription Opioid Use. Follow up: Private Physician; When: As needed; Reason: Recheck today's complaints, Re-evaluation by your physician. Problem is new. Symptoms have improved. rn
[2020-07-29] MEDS ORDERED: dexAMETHasone 10 MG/ML VIAL ONE (07:45)
[2020-07-29] MEDS ORDERED: KETOROLAC 30 MG/ML INJ ONE (07:45)
[2020-07-29 08:01] VITALS: BP 144/97; TEMP 98.2; O2SAT 99
== END 2020-07-29 07:55 | disposition home or self-care (01) ==
LOC: ER 06:33
DX: M54.12 Radiculopathy, cervical region (principal); M62.838 Other muscle spasm; M43.6 Torticollis; I10 Essential (primary) hypertension; F17.210 Nicotine dependence, cigarettes, uncomplicated; Z88.0 Allergy status to penicillin; Z91.012 Allergy to eggs; Z91.018 Allergy to other foods
CPT/HCPCS: 96372; 99283; J1100

== ENCOUNTER 2021-01-21 10:49 | Emergency (ER) | payer BC, SELFPAY ==
[2021-01-21] MEDS ORDERED: MAGNES/ALUMIN/SIMET 30ML UCUP ONE (12:30)
[2021-01-21] MEDS ORDERED: FAMOTIDINE 20 MG/2 ML VIAL IV ONE (12:31)
[2021-01-21] MEDS ORDERED: LIDOCAINE VISCOUS 2% SOLN 15 ML UDC ONE (12:31)
[2021-01-21] MEDS ORDERED: ONDANSETRON 4 MG/2 ML VIAL ONE (12:31)
[2021-01-21] MEDS ORDERED: MORPHINE 4 MG/ML SYR ONE (12:31)
[2021-01-21] MEDS ORDERED: NA CHLORIDE 0.9% 1,000 ML ONE (12:32)
[2021-01-21 12:44] LABS: Absolute Lymphocytes (CBC) 1.6 K/uL (0.7-4.9); Basophils % 0.6 % (0-1.3); Hematocrit 45.3 % (39.6-49.0); Lymphocytes % 36.2 % (15.3-44.8); RBC Red Blood Cell Count 4.62 M/uL (4.33-5.43)
[2021-01-21 13:04] LABS: Bilirubin Direct 0.2 mg/dL (0-0.2); Bilirubin Total 0.5 mg/dL (0.2-1.0); Potassium 4.1 mmol/L (3.5-5.1); Protein, Total 8.4 g/dL (6.4-8.2)
--- NOTE | 2021-01-21 13:32 | RAD REPORT ---
EXAM DESCRIPTION: CTAbdomen Pelvis W Contrast - 01/21/2021 1:23 pm CLINICAL HISTORY: Abdominal pain. ABD PAIN COMPARISON: <Comparisons> TECHNIQUE: Biphasic CT imaging of the abdomen and pelvis was performed with 100 ml non-ionic IV cont rast. All CT scans are performed using dose optimization technique as appropriate and may include automated exposure control or mA/KV adjustment according to patient size. FINDINGS: The lung bases are clear. The liver, spleen, pancreas, adrenal glands and kidneys are within normal limits. No bowel obstruction, free air, free fluid or abscess. Mild sigmoid diverticulosis without diverticul itis. The appendix is normal. No evidence of significant lymphadenopathy. No suspicious bony findings. IMPRESSION: No acute intra-abdominal or pelvic finding.
--- NOTE | 2021-01-21 13:45 | ER ---
Nurse's Notes [facility] Name: Brett Santo Jr Age: 40 yrs Sex: Male : 1980 Arrival Date: 01/21/2021 Time: 11:01 Bed 20 Private MD: Diagnosis: Diarrhea, unspecified Presentation: 01/21 11:12 Chief complaint: Patient states: LUQ pain x2 days. Denies NV, states diarrhea. States vg1 pain is sharp. Coronavirus screen: Vaccine status: Patient reports being unvaccinated. Client denies travel out of the [place] in the last 14 days. Ebola Screen: Patient negative for fever greater than or equal to 101.5 degrees Fahrenheit, and additional compatible Ebola Virus Disease symptoms. Initial Sepsis Screen: Does the patient meet any 2 criteria? No. Patient's initial sepsis screen is negative. Does the patient have a suspected source of infection? No. Patient's initial sepsis screen is negative. Risk Assessment: Do you want to hurt yourself or someone else? Patient reports no desire to harm self or others. Onset of symptoms was January 19, 2021. 11:12 Method Of Arrival: Ambulatory vg1 11:12 Acuity: SERGIO 3 vg1 Triage Assessment: 11:14 General: Appears in no apparent distress. uncomfortable, Behavior is calm, cooperative. vg1 Pain: Complains of pain in left upper quadrant Pain currently is 8 out of 10 on a pain scale. GI: Abdomen is flat, Stools are reported to be diarrhea. Reports diarrhea. Historical: - Allergies: 11:14 EGG/POULTRY; vg1 11:14 PENICILLINS; vg1 - Home Meds: 11:15 losartan 50 mg oral tab [Active]; vg1 - PMHx: 11:14 Asthma; Hypertension; vg1 - Immunization history:: Client reports having NOT received the Covid vaccine. - Social history:: Smoking status: Patient reports the use of cigarette tobacco products, smokes one-half pack cigarettes per day. - Family history:: not pertinent. Screenin:28 Abuse screen: Denies threats or abuse. Nutritional screening: No deficits noted. sl2 Tuberculosis screening: No symptoms or risk factors identified. Fall Risk None identified. No fall in past 12 months (0 pts). No secondary diagnosis (0 pts). No IV (0 pts). Ambulatory Aid- None/Bed Rest/Nurse Assist (0 pts). Gait- Normal/Bed Rest/Wheelchair (0 pts) Mental Status- Oriented to own ability (0 pts). Total Song Fall Scale indicates No Risk (0-24 pts). Assessment: 11:28 General: Appears in no apparent distress. well groomed, well developed, Behavior is sl2 calm, cooperative, appropriate for age. 11:28 Pain: Complains of pain in abdomen and left upper quadrant Pain does not radiate. Pain sl2 currently is 7 out of 10 on a pain scale. Quality of pain is described as aching, sharp, Pain began 2-3 days ago. Is continuous. Neuro: No deficits noted. Cardiovascular: No deficits noted. Respiratory: No deficits noted. GI: Abdomen is flat, Bowel sounds present X 4 quads. Abd is soft and non tender Reports upper abdominal pain, diarrhea, Patient currently denies nausea, vomiting. : No deficits noted. No signs and/or symptoms were reported regarding the genitourinary system. EENT: No deficits noted. No signs and/or symptoms were reported regarding the EENT system. Derm: No deficits noted. No signs and/or symptoms reported regarding the dermatologic system. Musculoskeletal: No deficits noted. No signs and/or symptoms reported regarding the musculoskeletal system. Vital Signs: 11:12 BP 147 / 107; Pulse 60; Resp 16; Temp 98.2; Pulse Ox 100% ; Weight 79.38 kg; Height 6 vg1 ft. 1 in. (185.42 cm); Pain 8/10; 12:00 BP 157 / 100; Pulse 88; Resp 18; Temp 98.4(O); Pulse Ox 100% on R/A; sl2 14:06 BP 152 / 88; Pulse 80; Resp 16; Temp 98.2; Pulse Ox 100% ; jt3 11:12 Body Mass Index 23.09 (79.38 kg, 185.42 cm) vg1 ED Course: 11:01 Patient arrived in ED. ds1 11:14 Triage completed. vg1 11:15 Arm band placed on. vg1 11:28 Patient has correct armband on for positive identification. Placed in gown. Bed in low sl2 position. Call light in reach. Side rails up X2. Adult w/ patient. 11:28 No provider procedures requiring assistance completed. sl2 11:48 Sammi Willett, SUSANNE is Primary Nurse. sl2 11:53 Stephanie Gold MD is Attending Physician. ma2 12:10 Inserted saline lock: 20 gauge in right antecubital area, using aseptic technique. sl2 Blood collected. 13:23 CT Abd/Pelvis - IV Contrast Only In Process Unspecified. EDMS 14:21 IV discontinued, intact, bleeding controlled, No redness/swelling at site. Pressure sl2 dressing applied. Administered Medications: 12:33 Drug: GI Cocktail without - (Maalox Suspension 30 ml, Lidocaine Liquid 2 % 15 sl2 ml) Route: PO; 13:30 Follow up: Response: No adverse reaction; Pain is decreased jt3 12:36 Drug: NS 0.9% 1000 ml Route: IV; Rate: 1 bolus; Site: right antecubital; sl2 13:10 Follow up: IV Status: Completed infusion; IV Intake: 1000ml jt3 12:36 Drug: Zofran (Ondansetron) 4 mg Route: IVP; Site: right antecubital; sl2 13:30 Follow up: Response: No adverse reaction; Marked relief of symptoms jt3 12:40 Drug: Pepcid (famotidine) 20 mg Route: IVP; Site: right antecubital; sl2 13:10 Follow up: Response: No adverse reaction; Marked relief of symptoms jt3 12:46 Drug: morphine 4 mg Route: IVP; Site: right antecubital; sl2 13:10 Follow up: Response: No adverse reaction; Marked relief of symptoms; Pain is decreased jt3 Intake: 13:10 IV: 1000ml; Total: 1000ml. jt3 Outcome: 13:44 Discharge ordered by . ma2 14:21 Discharged to home with family. sl2 14:21 Condition: stable 14:21 Discharge instructions given to patient, family, Instructed on discharge instructions, follow up and referral plans. medication usage, Demonstrated understanding of instructions, follow-up care, medications, Prescriptions given X 2. 14:21 Patient left the ED. sl2 Signatures: Dispatcher [employer] EDNC Margoth Mcqueen ds1 Stephanie Gold MD MD ma2 Jenny Rios RN RN vg1 Sammi Willett RN RN sl2 Leandro Oglesby RN RN jt3 Corrections: (The following items were deleted from the chart) 11:15 11:14 Home Meds: Lovastatin Oral; vg1 vg1
--- NOTE | 2021-01-21 13:45 | EDPHYS ---
Physician Documentation [facility] Name: Brett Santo Jr Age: 40 yrs Sex: Male : 1980 Arrival Date: 01/21/2021 Time: 11:01 Bed 20 Private MD: ED Physician Stephanie Gold HPI: 01/21 12:10 This 40 yrs old Black Male presents to ER via Ambulatory with complaints of Abdominal ma2 Pain. 12:10 The patient presents with abdominal pain in the left upper quadrant. Onset: The ma2 symptoms/episode began/occurred gradually, 2 day(s) ago. Associated signs and symptoms: Pertinent negatives: anorexia, diarrhea, fever, vomiting, vomiting blood. Associated signs and symptoms: Pertinent positives: diarrhea. Severity of pain: At its worst the pain was moderate in the emergency department the pain is unchanged. The patient has not experienced similar symptoms in the past. Historical: - Allergies: 11:14 EGG/POULTRY; vg1 11:14 PENICILLINS; vg1 - Home Meds: 11:15 losartan 50 mg oral tab [Active]; vg1 - PMHx: 11:14 Asthma; Hypertension; vg1 - Immunization history:: Client reports having NOT received the Covid vaccine. - Social history:: Smoking status: Patient reports the use of cigarette tobacco products, smokes one-half pack cigarettes per day. - Family history:: not pertinent. ROS: 12:10 Constitutional: Negative for fever, chills, and weight loss. ma2 12:10 All other systems are negative. Exam: 12:10 Constitutional: This is a well developed, well nourished patient who is awake, alert, ma2 and in no acute distress. Head/Face: Normocephalic, atraumatic. Eyes: Pupils equal round and reactive to light, extra-ocular motions intact. Lids and lashes normal. Conjunctiva and sclera are non-icteric and not injected. Cornea within normal limits. Periorbital areas with no swelling, redness, or edema. ENT: Nares patent. No nasal discharge, no septal abnormalities noted. Tympanic membranes are normal and external auditory canals are clear. Oropharynx with no redness, swelling, or masses, exudates, or evidence of obstruction, uvula midline. Mucous membranes moist. Neck: Trachea midline, no thyromegaly or masses palpated, and no cervical lymphadenopathy. Supple, full range of motion without nuchal rigidity, or vertebral point tenderness. No Meningismus. Chest/axilla: Normal chest wall appearance and motion. Nontender with no deformity. No lesions are appreciated. Cardiovascular: Regular rate and rhythm with a normal S1 and S2. No gallops, murmurs, or rubs. Normal PMI, no JVD. No pulse deficits. Respiratory: Lungs have equal breath sounds bilaterally, clear to auscultation and percussion. No rales, rhonchi or wheezes noted. No increased work of breathing, no retractions or nasal flaring. Abdomen/GI: Soft, non-tender, with normal bowel sounds. No distension or tympany. No guarding or rebound. No evidence of tenderness throughout. Back: No spinal tenderness. No costovertebral tenderness. Full range of motion. Skin: Warm, dry with normal turgor. Normal color with no rashes, no lesions, and no evidence of cellulitis. MS/ Extremity: Pulses equal, no cyanosis. Neurovascular intact. Full, normal range of motion. Neuro: Awake and alert, GCS 15, oriented to person, place, time, and situation. Cranial nerves II-XII grossly intact. Motor strength 5/5 in all extremities. Sensory grossly intact. Cerebellar exam normal. Normal gait. Vital Signs: 11:12 BP 147 / 107; Pulse 60; Resp 16; Temp 98.2; Pulse Ox 100% ; Weight 79.38 kg; Height 6 vg1 ft. 1 in. (185.42 cm); Pain 8/10; 12:00 BP 157 / 100; Pulse 88; Resp 18; Temp 98.4(O); Pulse Ox 100% on R/A; sl2 14:06 BP 152 / 88; Pulse 80; Resp 16; Temp 98.2; Pulse Ox 100% ; jt3 11:12 Body Mass Index 23.09 (79.38 kg, 185.42 cm) vg1 MDM: 12:10 Differential diagnosis: gastritis, gastroesophageal reflux disease, Irritable bowel ma2 syndrome, urinary tract infection. 13:43 Data reviewed: vital signs, nurses notes. Counseling: I had a detailed discussion with ma2 the patient and/or guardian regarding: the historical points, exam findings, and any diagnostic results supporting the discharge/admit diagnosis, the presence of at least one elevated blood pressure reading (>120/80) during this emergency department visit, the need for outpatient follow up. Response to treatment: the patient's symptoms have markedly improved after treatment. 13:44 Patient medically screened. ma2 01/21 12:06 Order name: Basic Metabolic Panel; Complete Time: 13:08 ma2 01/21 12:06 Order name: CBC with Diff; Complete Time: 13:08 or2 01/21 12:06 Order name: Hepatic Function; Complete Time: 13:08 ma2 01/21 12:06 Order name: Lipase; Complete Time: 13:08 ma2 01/21 12:06 Order name: CT Abd/Pelvis - IV Contrast Only; Complete Time: 13:43 ma2 01/21 12:06 Order name: IV Saline Lock; Complete Time: 12:28 ma2 01/21 12:06 Order name: Labs collected and sent; Complete Time: 12:28 ma2 Administered Medications: 12:33 Drug: GI Cocktail without - (Maalox Suspension 30 ml, Lidocaine Liquid 2 % 15 sl2 ml) Route: PO; 13:30 Follow up: Response: No adverse reaction; Pain is decreased jt3 12:36 Drug: NS 0.9% 1000 ml Route: IV; Rate: 1 bolus; Site: right antecubital; sl2 13:10 Follow up: IV Status: Completed infusion; IV Intake: 1000ml jt3 12:36 Drug: Zofran (Ondansetron) 4 mg Route: IVP; Site: right antecubital; sl2 13:30 Follow up: Response: No adverse reaction; Marked relief of symptoms jt3 12:40 Drug: Pepcid (famotidine) 20 mg Route: IVP; Site: right antecubital; sl2 13:10 Follow up: Response: No adverse reaction; Marked relief of symptoms jt3 12:46 Drug: morphine 4 mg Route: IVP; Site: right antecubital; sl2 13:10 Follow up: Response: No adverse reaction; Marked relief of symptoms; Pain is decreased jt3 Disposition Summary: 01/21/21 13:44 Discharge Ordered Location: Home ma2 Condition: Stable ma2 Diagnosis - Diarrhea, unspecified ma2 Followup: ma2 - With: Private Physician - When: Tomorrow - Reason: If symptoms return, Continuance of care Discharge Instructions: - Form - Return To Work bd - Discharge Summary Sheet ma2 - Diarrhea, Adult ma2 Forms: - Work release form bd - Medication Reconciliation Form ma2 - Thank You Letter ma2 - Antibiotic Education ma2 - Prescription Opioid Use ma2 Prescriptions: - Pepcid 20 mg Oral Tablet - take 1 tablet by ORAL route every 12 hours for 10 days; 20 tablet; Refills: 0, ma2 Product Selection Permitted - Zofran 4 mg Oral Tablet - take 1 tablet by ORAL route every 12 hours As needed; 20 tablet; Refills: 0, ma2 Product Selection Permitted Signatures: Dispatcher [employer] EDGA Stephanie Gold MD MD ma2 Jenny Rios RN RN vg1 Sammi Willett RN RN sl2 Leandro Oglesby RN jt3 Corrections: (The following items were deleted from the chart) 11:15 11:14 Home Meds: Lovastatin Oral; vg1 vg1
[2021-01-21 14:39] VITALS: O2SAT 100
[2021-01-21 14:42] VITALS: BP 152/88; TEMP 98.2
--- OUTSIDE RECORDS SUMMARY | 2021-01-24 19:08 | XMS REPORT | Continuity of Care Document ---
:1980 Author Organization [facility] t Address [address] [place] [address] Care Team Providers Name Role Phone Cartagena DO Attending Clinician CARTAGENA Attending Clinician Unavailable Payers Payer Name Policy Type Policy Number Effective Date Expiration Date S ource Problems This patient has no known problems. Allergies, Adverse Reactions, Alerts Allergy Allergy Status Severity Reaction(s) Onset Inactive Treating Comm ents Source Name Type Date Date Clinician Egg Propensi Active Swelling Univer s ty to 5-24 ity of adverse 00:00: [place] reaction 00 Medical s Branch Penicill Propensi Active Swelling Univ ers ins ty to 5-24 ity of adverse 00:00: [place] reaction 00 Medical s Branch EGG DRUG Active Swelling Univers INGREDI 5-24 ity of 00:00: [place] 00 Medical Branch PENICILL Drug Active Swelling Univer s INS Class 5-24 ity of 00:00: [place] 00 Medical Branch Social History Social Habit Start Date Stop Date Quantity Comments Source Exposure to Not sure [facility] SARS-CoV-2 (event) Medica l Branch Sex Assigned At [birth year] [facility] 00:00:00 00:00:00 Medical [place] Smoking Status Start Date Stop Date Source Unknown if ever smoked [facility] Medications Ordered Filled Start Stop Current Ordering Indication Dosage Frequency Signature Comments Components Source Medication Medication Date Date Medication? Clinician (SIG) Name Name NaCl 0.9% 2020- No 1000mL at 999 Uni vers (NS) bolus 6-10 06-10 mL/hr, ity of infusion 18:00: 19:00 1,000 mL, Guillermo as 1,000 mL 00 :00 IV Medical Infusion, Branch ONCE, 1 dose, Aishwarya 6/10/21 at 1300, STAT ondansetron 2018-0 Yes 4mg Take 1 [facility] (ZOFRAN) 4 8-22 tablet by ity of mg tablet 00:00: mouth [place] 00 every 8 Medical (eight) [place] hours as needed for Nausea and Vomiting (N/V). Vital Signs Vital Name Observation Time Observation Value Comments Source Respiratory rate 2020-08-21 19:00:00 20 /min [facility] Systolic blood 2020-08-21 18:55:00 132 mm[Hg] [facility] Diastolic blood 2020-08-21 18:55:00 98 mm[Hg] [facility] Heart rate 2020-08-21 18:55:00 97 /min [facility] Oxygen saturation in 2020-08-21 18:55:00 97 /min [facility] Arterial blood by [facility] Pulse oximetry [place] Body temperature 2020-08-21 17:37:00 36.67 Tania [facility] Body weight 2020-08-21 17:37:00 86.183 kg [facility] Procedures Procedure Date / Time Performed Performing Clinician Sourc e URINALYSIS 2020-08-21 19:23:00 Singer [facility] TROPONIN I 2020-08-21 18:13:00 Cartagena, [facility] COMP. METABOLIC PANEL 2020-08-21 18:13:00 Lonny [facility] ([id number]) [facility] CBC WITH DIFF 2020-08-21 18:13:00 Singer [facility] XR CHEST 1 VW 2020-08-21 18:09:04 Singer [facility] Encounters Start End Encounter Admission Attending Care Care Encounter Source Date/Time Date/Time Type Type Clinicians Facility Department ID 2020-08-21 2020-08-21 Emergency Singer [facility] [id number] [facility] 12:37:00 15:55:00 Lonny Devries [id number] i [facility] [id number] [facility] [id number] [address] 2020-08-21 2020-08-21 Emergency X , [facility] ERT [id number] Univers 12:37:00 12:37:00 LONNY [facility] Results Test Description Test Time Test Comments Results Result Comments Source URINALYSIS 2020-08-21 20:10:19 Test Item Value Reference Range Interpretation Comme nts APPEARANCE (test code = Clear Clear 2371291315) COLOR (test code = 0566291373) Yellow Yellow PH (test code = 0789572059) 4.8-8.0 SP GRAVITY (test code = 1.003-1.030 0122250113) GLU U QUAL (test code = Normal Normal 8730896178) BLOOD (test code = 6872925439) Negative Negative KETONES (test code = 5852436736) Negative Negative PROTEIN (test code = 2887-8) Negative Negative UROBILIN (test code = Normal Normal 9529101724) BILIRUBIN (test code = Negative Negative 7700625434) NITRITE (test code = 7466899499) Negative Negative LEUK SONDRA (test code = Negative Negative 2627343589) RBC/HPF (test code = 5413500913) See_Comment [Automated message] The system which ge nerated this result transmit shalom reference range: 0 - 3 HP F. The reference range was not used to interpret th is result as normal/abnormal . WBC/HPF (test code = 5079307477) See_Comment [Automated message] The system which ge nerated this result transmit shalom reference range: 0 - 5 HP F. The reference range was not used to interpret th is result as normal/abnormal . BACTERIA (test code = Negative Negative 4859506500) MUCOUS (test code = 2810666621) Slight Negative LPF A SQ EPITH (test code = <1 HPF 8763018644) Lab Interpretation (test code = Abnormal 56078-8) [facility] [id number] 18:47:28 Test Item Value Reference Range Interpretation Comments TROPONIN I (test 0.000 ng/mL See_Comment [Automated code = 2445816435) message] The system which generated this result transmitted reference range : <=0.034. The reference range was not used to interpret this result as normal/abnormal . BON (test code = Equal or Less than BON) 0.034 ng/ml---Normal ?Note: Cardiac troponin begins to rise 3-4 hours after the onset of ischemia. Repeat in 4-6 hours if the sample was drawn within 3-4 hours of the onset of the symptom and found normal. Between 0.035 and 0.120 ng/mL--- Borderline. Questionable myocardial injury or necrosis ? ?Note: Serial measurement may be necessary to confirm or exclude the diagnosis of myocardial injury or necrosis; Clinical correlation (symptoms, EKGs, imaging studies, and others) required; Repeat in 4-6 hours if clinically indicated. ? Equal or Higher than 0.121 ng/mL---Abnormal. Myocardial Injury or Necrosis Likely ? Biotin has been reported to cause a negative bias, interpret results relative to patient's use of biotin. ? Lab Interpretation Normal (test code = 24059-4) [facility]. METABOLIC PANEL ([id number])2020-08-21 18:36:01 Test Item Value Reference Range Interpretation Comments NA (test code = 140 mmol/L 135-145 7754528196) K (test code = 4.2 mmol/L 3.5-5.0 7945554715) CL (test code = 108 mmol/L 98-108 6141038644) CO2 TOTAL (test code = 26 mmol/L 23-31 2899774750) AGAP (test code = 2-16 4555870000) BUN (test code = 20 mg/dL 7-23 1495450478) GLUCOSE (test code = 75 mg/dL 70-110 9111980969) CREATININE (test code = 1.38 mg/dL 0.60-1.25 H 5667723709) TOTAL BILI (test code = 0.9 mg/dL 0.1-1.2 6026478803) CALCIUM (test code = 9.6 mg/dL 8.6-10.6 8425091981) T PROTEIN (test code = 8.3 g/dL 6.3-8.2 H 5374217970) ALBUMIN (test code = 4.5 g/dL 3.5-5.0 3538449606) ALK PHOS (test code = 75 U/L 34-122 3011618804) ALTv (test code = 17 U/L 5-50 1742-6) AST(SGOT) (test code = 26 U/L 13-40 5619429721) eGFR (test code = mL/min/1.73m2 4222974301) BON (test code = BON) Association of Glomerular Filtration Rate (GFR) and Staging of Kidney Disease* + --+ --+ ------+| GFR (mL/min/1.73 m2) ?| With Kidney Damage ?| ?Without Kidney Damage+ --------+ --------+ +| ?>90 ?| ?Stage one ?| ? Normal ?+ ---+ ---+ -------+| ?60-89 ?| ?Stage two ?| ? Decreased GFR ? + --+ --+ ------+| ?30-59 ?| ?Stage three ?| ? Stage three ? + --+ --+ ------+| ?15-29 ?| ?Stage four ? | ? Stage four ?+ ---+ ---+ -------+| ?<15 (or dialysis) ? ?| ?Stage five ? | ? Stage five ?+ ---+ ---+ -------+ *Each stage assumes the associated GFR level has been in effect for at least three months. ?Stages 1 to 5, with or without kidney disease, indicate chronic kidney disease. Notes: Determination of stages one and two (with eGFR >59mL/min/1.73 m2) requires estimation of kidney damage for at least three months as defined by structural or functional abnormalities of the kidney, manifested by either:Pathological abnormalities or Markers of kidney damage (including abnormalities in the composition of the blood or urine or abnormalities in imaging tests). Lab Interpretation Abnormal (test code = 56206-7) [facility] WITH [id number] 18:34:23 Test Item Value Reference Range Interpretation Comments WBC (test code = See_Comment [Automated 9287-2) message] The sy stem which generated this result transmitted reference range : 4.20 - 10.70 10*3/?L. The reference range was not used to interpret this result as normal/abnormal . RBC (test code = See_Comment [Automated 789-8) message] The sy stem which generated this result transmitted reference range : 4.26 - 5.52 10*6/?L. The reference range was not used to interpret this result as normal/abnormal . HGB (test code = 14.4 g/dL 12.2-16.4 718-7) HCT (test code = 41.9 % 38.4-49.3 4544-3) MCV (test code = 94.4 fL 81.7-95.6 787-2) MCH (test code = 32.4 pg 26.1-32.7 785-6) MCHC (test code = 34.4 g/dL 31.2-35.0 786-4) RDW-SD (test code = 43.7 fL 38.5-51.6 72518-3) RDW-CV (test code = 12.5 % 12.1-15.4 788-0) PLT (test code = See_Comment [Automated 777-3) message] The sy stem which generated this result transmitted reference range : 150 - 328 10*3/ ?L. The reference r bebeto was not used to interpret this result as normal/abnormal . MPV (test code = 10.9 fL 9.8-13.0 39498-8) NRBC/100 WBC (test See_Comment [Automat ed code = 2366748197) message] The system which generated this result transmitted reference range : 0.0 - 10.0 /100 WBCs. The refer ence range was not u sed to interpret th is result as normal/abnormal . NRBC x10^3 (test code <0.01 See_Comment [Auto mated = 0304963434) message] The s ystem which generated this result transmitted reference range : 10*3/?L. The reference range was not used to interpret this result as normal/abnormal . GRAN MAT (NEUT) % 62.0 % (test code = 770-8) IMM GRAN % (test code 0.20 % = 8451785434) LYMPH % (test code = 28.3 % 736-9) MONO % (test code = 8.3 % 5905-5) EOS % (test code = 0.7 % 713-8) BASO % (test code = 0.5 % 706-2) GRAN MAT x10^3(ANC) 3.50 10*3/uL 1.99-6.95 (test code = 9124433175) IMM GRAN x10^3 (test <0.03 0.00-0.06 code = 8050158273) LYMPH x10^3 (test code 1.60 10*3/uL 1.09-3.23 = 731-0) MONO x10^3 (test code 0.47 10*3/uL 0.36-1.02 = 742-7) EOS x10^3 (test code = 0.04 10*3/uL 0.06-0.53 L 711-2) BASO x10^3 (test code 0.03 10*3/uL 0.01-0.09 = 704-7) Lab Interpretation Abnormal (test code = 56063-4) [facility] [id number] 18:10:46HISTORY: Syncope. FINDINGS: ?AP view of the chest showed normal appearance of thecardiomediastinal silhouette. Mild hyperinflation of lungs noted. No acutepneumonia, pleural effusion, pulmonary congestion detected. CONCLUSIONS: No acute cardiopulmonary disease. [facility], Radiant Results Inft User - 08/21/2020 1:11 PM CDT HISTORY: Syncope.FINDINGS: AP view of the chest showed normal appearance of thecardiomediastinal silhouette. Mild hyperinflation of lungs noted. No acutepneumonia, pleural effusion, pulmonary congestion detected. CONCLUSIONS: No acute cardiopulmonary disease.[facility]"
== END 2021-01-21 14:21 | disposition home or self-care (01) ==
LOC: ER 10:49
DX: R19.7 Diarrhea, unspecified (principal); I10 Essential (primary) hypertension; F17.210 Nicotine dependence, cigarettes, uncomplicated; Z88.0 Allergy status to penicillin; Z91.012 Allergy to eggs; Z91.018 Allergy to other foods
CPT/HCPCS: 96361; 85025; 80048; 36415; 80076; 83690; 74177; 96375; 96374; 99284; Q9967; J7030; J2405

== ENCOUNTER 2025-01-09 09:13 | Emergency (ER) | payer BC ==
[2025-01-09] MEDS ORDERED: FLUORESCEIN SODIUM 1 MG/WRAP ONE (09:30)
[2025-01-09] MEDS ORDERED: TETRACAINE HCL 0.5% 4ML OPTH ONE (09:30)
--- NOTE | 2025-01-09 09:53 | ER ---
Nurse's Notes [facility] Name: Brett Santo Jr Age: 44 yrs Sex: Male : 1980 Arrival Date: 01/09/2025 Time: 09:13 Bed 12 Private MD: Diagnosis: Unspecified acute conjunctivitis, right eye Presentation: 01/09 09:15 Chief complaint: Patient states: R EYE PAIN SINCE Y/D, SUBJECTIVE FOREIGN BODY. bp Coronavirus screen: At this time, the client does not indicate any symptoms associated with coronavirus-19. Ebola Screen: No symptoms or risks identified at this time. Mechanism of Injury: No Mechanism of Injury. The patient denies any loss of vision. Initial Sepsis Screen: Does the patient meet any 2 criteria? No. Patient's initial sepsis screen is negative. Does the patient have a suspected source of infection? No. Patient's initial sepsis screen is negative. Risk Assessment: Do you want to hurt yourself or someone else? Patient reports no desire to harm self or others. Onset of symptoms is unknown. 09:15 Method Of Arrival: Ambulatory bp 09:15 Acuity: SERGIO 4 bp Triage Assessment: 09:15 General: Appears in no apparent distress. Behavior is calm, cooperative, appropriate bp for age. Pain: Complains of pain in right eye. EENT: Reports pain in right eye. Neuro: No deficits noted. Cardiovascular: No deficits noted. Respiratory: No deficits noted. GI: No signs and/or symptoms were reported involving the gastrointestinal system. : No signs and/or symptoms were reported regarding the genitourinary system. Derm: No deficits noted. Musculoskeletal: No deficits noted. Historical: - Allergies: 09:15 EGG/POULTRY; bp 09:15 PENICILLINS; bp - PMHx: 09:15 Asthma; Hypertension; bp - Immunization history:: Adult Immunizations up to date. - Infectious Disease History:: Denies. - Social history:: Smoking status: Patient denies any tobacco usage or history of. Screenin:55 [facility] ED Fall Risk Assessment (Adult) History of falling in the last 3 months, bp including since admission No falls in past 3 months (0 pts) Confusion or Disorientation No (0 pts) Intoxicated or Sedated No (0 pts) Impaired Gait No (0 pts) Mobility Assist Device Used No (0 pt) Altered Elimination No (0 pt) Score/Fall Risk Level 0 - 2 = Low Risk Oriented to surroundings. Abuse screen: Denies threats or abuse. Denies injuries from another. Nutritional screening: No deficits noted. Tuberculosis screening: No symptoms or risk factors identified. Vital Signs: 09:42 BP 151 / 102; Pulse 81; Resp 17; Temp 98.2; Pulse Ox 100% on R/A; bc6 ED Course: 09:15 Patient arrived in ED. im 09:15 Tyrell Odell FNP-C [facility] 09:15 Allen Delvalle DO is Attending Physician. dr5 09:15 Arm band placed on. bp 09:52 Norbert Merritt, RN is Primary Nurse. bp 09:53 Triage completed. bp 09:55 Patient has correct armband on for positive identification. bp 09:56 No provider procedures requiring assistance completed. Patient did not have IV access bp during this emergency room visit. Administered Medications: 09:20 Drug: Tetracaine Ophthalmic Drops 0.5 % 1 drops Ophthalmic once Route: Ophthalmic; bp Site: right eye; 09:20 Drug: Fluorescein Ophthalmic Strip 1 strip Ophthalmic once Route: Ophthalmic; Site: bp right eye; Medication: 09:59 VIS not applicable for this client. cm10 Outcome: 09:52 Discharge ordered by MD. dr5 09:56 Discharged to home ambulatory, bp 09:56 Condition: stable 09:56 Discharge instructions given to patient, Instructed on discharge instructions, follow up and referral plans. medication usage, Demonstrated understanding of instructions, follow-up care, medications, Prescriptions given X 1, 09:59 Patient left the ED. cm10 Signatures: Norbert Merritt, RN RN Maricel Ledesma [facility] Devika Gutiérrez Clarissa, RN RN cm10 Tyrell Odell FNP-C FNP-Cdr5
--- NOTE | 2025-01-09 09:53 | EDPHYS ---
Physician Documentation [facility] Name: Brett Santo Jr Age: 44 yrs Sex: Male : 1980 Arrival Date: 01/09/2025 Time: 09:13 Bed 12 Private MD: ED Physician Allen Delvalle HPI: 01/09 11:31 This 44 yrs old Black Male presents to ER via Ambulatory with complaints of Eye Pain - dr5 right. 11:31 Onset: The symptoms/episode began/occurred yesterday. Patient is a 44-year-old male dr5 with history of asthma and hypertension coming in with right eye pain and redness that started yesterday. Patient reports he was working outside possibly selling wood in his eye. He was rubbing his which has made the pain worse. Patient reports he woke up this morning with pain to his right eye as well as tearing constantly.. Historical: - Allergies: 09:15 EGG/POULTRY; bp 09:15 PENICILLINS; bp - PMHx: 09:15 Asthma; Hypertension; bp - Immunization history:: Adult Immunizations up to date. - Infectious Disease History:: Denies. - Social history:: Smoking status: Patient denies any tobacco usage or history of. ROS: 11:31 Constitutional: as per hpi dr5 Exam: 11:31 Constitutional: This is a well developed, well nourished patient who is awake, alert, dr5 and in no acute distress. Head/Face: Normocephalic, atraumatic. ENT: Nares patent. No nasal discharge, no septal abnormalities noted. Tympanic membranes are normal and external auditory canals are clear. Oropharynx with no redness, swelling, or masses, exudates, or evidence of obstruction, uvula midline. Mucous membranes moist. Neck: Trachea midline, no thyromegaly or masses palpated, and no cervical lymphadenopathy. Supple, full range of motion without nuchal rigidity, or vertebral point tenderness. No Meningismus. Chest/axilla: Normal chest wall appearance and motion. Nontender with no deformity. No lesions are appreciated. Cardiovascular: Regular rate and rhythm with a normal S1 and S2. Normal PMI, no JVD. No pulse deficits. Respiratory: Lungs have equal breath sounds bilaterally, clear to auscultation. No rales, rhonchi or wheezes noted. No increased work of breathing, no retractions or nasal flaring. Back: No spinal tenderness. No costovertebral tenderness. Full range of motion. Skin: Warm, dry with normal turgor. Normal color with no rashes, no lesions, and no evidence of cellulitis. MS/ Extremity: Pulses equal, no cyanosis. Neurovascular intact. Full, normal range of motion. Neuro: Awake and alert, GCS 15, oriented to person, place, time, and situation. Cranial nerves II-XII grossly intact. Motor strength 5/5 in all extremities. Sensory grossly intact. Cerebellar exam normal. Normal gait. 11:31 Eyes: Periorbital structures: appear normal, no acute changes, Pupils: no acute changes, equal, round, and reactive to light and accomodation, Extraocular movements: no acute changes, Conjunctiva: injected, in the right eye, Corneas: abrasion, that is small, on the right, at 3 o'clock, foreign body, on the right, a fluorescein strip employed to appreciate the findings, Sclera: no appreciated abnormality, no acute changes, Anterior chamber: Patient has intact extraocular movements. Negative Jun sign. Patient has small corneal abrasion likely from rubbing his eye. No foreign body noted. Tetracaine and fluorescein strip used.. Vital Signs: 09:42 BP 151 / 102; Pulse 81; Resp 17; Temp 98.2; Pulse Ox 100% on R/A; bc6 MDM: 09:15 Medical Screening Exam initiated dr5 11:31 Differential Diagnosis Foreign body, conjunctivitis, scleritis, uveitis. Data reviewed: dr5 vital signs, nurses notes. Consideration of Admission/Observation Escalation of care including admission/observation considered. Escalation considered patient found to have foreign body in eye or positive Jun sign. I considered the following discharge prescriptions or medication management in the emergency department I discussed and recommended Over The Counter medications, Medications were administered in the Emergency Department. See MAR. Care significantly affected by the following chronic conditions: Asthma, hypertension. Care significantly affected by the following Social Determinants of Health: Poor access to healthcare and/or lack of insurance, Poor access to transportation, Problems related to employment. Counseling: I had a detailed discussion with the patient and/or guardian regarding the historical points, exam findings, and any diagnostic results supporting the discharge/admit diagnosis, the presence of at least one elevated blood pressure reading (>120/80) during this emergency department visit, the need for outpatient follow up, for definitive care, an opthalmologist, a family practitioner, to return to the emergency department if symptoms worsen or persist or if there are any questions or concerns that arise at home. Medication response: Tetracaine. Response to treatment: the patient's symptoms have resolved after treatment. Special discussion: I discussed with the patient/guardian in detail that at this point there is no indication for admission to the hospital. It is understood, however, that if the symptoms persist or worsen the patient needs to return immediately for re-evaluation. Based on the history and exam findings, there is no indication for further emergent testing or inpatient evaluation. I discussed with the patient/guardian the need to see the opthamologist for further evaluation of the symptoms. ED course: Tetracaine and fluorescein strip used for small corneal abrasion noted. Will cover patient with antibiotics. Recommended patient follow-up with eye doctor this week. All questions answered. Strict ER precautions given.. 01/09 09:17 Order name: Fluoresene Opth strip; Complete Time: 09:49 dr5 Administered Medications: 09:20 Drug: Tetracaine Ophthalmic Drops 0.5 % 1 drops Ophthalmic once Route: Ophthalmic; bp Site: right eye; 09:20 Drug: Fluorescein Ophthalmic Strip 1 strip Ophthalmic once Route: Ophthalmic; Site: bp right eye; Disposition: 16:49 I was immediately available on-site in the Emergency Department for consultation in the ms3 care of the patient. Disposition Summary: 01/09/25 09:52 Discharge Ordered Notes: Location: Home dr5 Condition: Stable dr5 Diagnosis - Unspecified acute conjunctivitis, right eye dr5 Followup: dr5 - With: Emergency Department - When: As needed - Reason: Worsening of condition Followup: dr5 - With: Private Physician - When: 1 - 2 days - Reason: Recheck today's complaints, Continuance of care, Re-evaluation by your physician Discharge Instructions: - Discharge Summary Sheet dr5 - Bacterial Conjunctivitis, Adult dr5 Forms: - Work release form dr5 - Medication Reconciliation Form dr5 - Antibiotic Education dr5 - Patient Portal Instructions dr5 - Leadership Thank You Letter dr5 Prescriptions: - Ocuflox 0.3 % Ophthalmic drops - instill 2 drops OPHTHALMIC route every 6 hours for 7 days; 15 milliliter; dr5 Refills: 0, Product Selection Permitted Signatures: Norbert Merritt RN RN Allen Young DO DO ms3 Cass, Tyrell, ACCOUNT RECEIVABLE CLERK-C ACCOUNT RECEIVABLE CLERK-Cdr5
[2025-01-09 10:08] VITALS: BP 151/102; TEMP 98.2; O2SAT 100
== END 2025-01-09 09:59 | disposition home or self-care (01) ==
LOC: ER 09:13
DX: H10.31 Unspecified acute conjunctivitis, right eye (principal)
CPT/HCPCS: 99283